=== PATIENT | male | born 1940 | race Caucasian/White ===

== ENCOUNTER 2017-09-04 10:50 | Emergency (ER) | payer MEDICARE, MEDICAID ==
--- NOTE | 2017-09-04 11:19 | CT ---
CT HEAD WITHOUT IV CONTRAST 09/04/2017 HISTORY: Right-sided tingling involving the upper extremity. Tingling symptoms started one hour ago. COMPARISON: 11/23/2015. FINDINGS: There is no evidence of a hemorrhage, acute infarction, mass effect, midline shift. Again noted is mild cerebral and cerebellar volume loss. The ventricular system is normal in size, shape, and posi tion for the degree of sulcal atrophy. Again noted is a small left globe with circumferential calci fications. IMPRESSION: 1. No acute intracranial abnormality is demonstrated 2. Stable cerebral and cerebellar volume loss. 3. Small left globe with peripheral calcification, a stable finding, post-traumatic in origin versus possibly congenital in origin. 4. The above findings discussed with Dr. De Leon in the Emergency Department on 09/04/2017 at 1103 ho urs. POS: [facility]
[2017-09-04 11:24] LABS: #Basophils 0.1 thou/uL (0.0-0.2); #Eosinphils 0.4 thou/uL (0.0-0.7); #Lymphocytes 1.8 thou/uL (1.20-3.40); #Monocytes 0.7 thou/uL (0.11-0.59); #Neutrophils 2.2 thou/uL (1.40-6.50); %Basophils 2.3 % (0.0-1.0); %Eosinophils 7.4 % (0.0-10.0); %Lymphocytes 34.5 % (21.0-51.0); %Monocytes 13.1 % (0.0-10.0); Hematocrit 46.4 % (42.0-52.0); Mean Platelet Volume 6.8 fL (7.4-10.4); White Blood Cell (WBC) Count 5.1 thou/uL (4.8-10.8)
[2017-09-04 11:33] LABS: PTT 34.4 SEC (22.9-36.1); Prothrombin Time 13.1 SEC (12.0-14.7)
[2017-09-04 11:45] LABS: Troponin I Less than 0.010 ng/mL (< 0.028)
--- NOTE | 2017-09-04 11:55 | RAD ---
PORTABLE AP CHEST X-RAY 09/04/2017 HISTORY: Stroke alert. The patient is having right-sided tingling to the upper extremity. Symptoms started one hour prior to arrival. COMPARISON: 02/08/2016 FINDINGS: Interstitial opacities at the right lung base is improved with only minimal interstitial densities p ersisting likely related to mild scarring. There is evidence of emphysematous changes predominantly within the upper lobes with increased interstitial density at each lung base probably related to ch ronic bronchovascular markings. Cardiac silhouette and pulmonary vasculature are within normal limi ts. Vascular calcifications seen at the thoracic aorta. Surgical clips again overlie the epigastri c region. IMPRESSION: 1. Mild chronic lung changes with evidence of chronic obstructive pulmonary disease. 2. Improvement in interstitial opacities, right lung base, probably related to resolution of infecti ous process. POS: [facility]
[2017-09-04 11:56] LABS: ALT (SGPT) 29 U/L (8-55); AST (SGOT) 33 U/L (5-34); Alkaline Phosphatase 74 U/L (40-150); Anion Gap 13 mmol/L (10-20); BUN (Urea Nitrogen) 15 mg/dL (8.4-25.7); Bilirubin, Total 0.9 mg/dL (0.2-1.2); CK (CPK) 108 U/L (30-200); Calc. Creatinine Clearance 0 mL/min (70-130); Calcium 9.8 mg/dL (7.8-10.44); Carbon Dioxide 25 mmol/L (23-31); Chloride 103 mmol/L (98-107); Estimated GFR-MDRD 51; Globulin 4.2 g/dL (2.4-3.5); Protein, Total 8.5 g/dL (5.8-8.1)
--- NOTE | 2017-09-06 13:47 | EKG ---
Test Reason : STROKE Blood Pressure : / mmHG Vent. Rate : 074 BPM Atrial Rate : 074 BPM P-R Int : 160 ms QRS Dur : 068 ms QT Int : 372 ms P-R-T Axes : 078 -25 036 degrees QTc Int : 412 ms Normal sinus rhythm Septal infarct , age undetermined Abnormal ECG Confirmed by MING BOURNE, GRACIE ([id number]), online content editor JARRETT FRIAS ([id number]) on 09/06/2017 1:46:49 PM Referred By: Confirmed By:GRACIE LAI MD
== END 2017-09-04 14:00 | disposition left against medical advice (07) ==
LOC: ERS 10:50
DX: G45.9 Transient cerebral ischemic attack, unspecified (principal); I10 Essential (primary) hypertension; F17.210 Nicotine dependence, cigarettes, uncomplicated; Z79.899 Other long term (current) drug therapy
CPT/HCPCS: 36416; 70450; 71010; 80053; 82553; 84484; 85025; 85610; 85730; 93005; 99406

== ENCOUNTER 2017-10-17 09:09 | Emergency (ER) | payer MEDICARE ==
[2017-10-17] MEDS ORDERED: Nitroglycerin 2% Ointment 1 INCH/1 GM Packet ONE (09:37)
[2017-10-17 09:38] LABS: #Basophils 0.1 thou/uL (0.0-0.2); #Eosinphils 1.1 thou/uL (0.0-0.7); #Lymphocytes 1.8 thou/uL (1.20-3.40); #Monocytes 0.8 thou/uL (0.11-0.59); %Basophils 0.8 % (0.0-1.0); %Eosinophils 16.2 % (0.0-10.0); %Lymphocytes 25.9 % (21.0-51.0); Hematocrit 41.3 % (42.0-52.0); Mean Platelet Volume 6.6 fL (7.4-10.4); Red Blood Cell (RBC) Count 4.14 mill/uL (4.70-6.10); White Blood Cell (WBC) Count 6.7 thou/uL (4.8-10.8)
--- NOTE | 2017-10-17 09:49 | RAD ---
AP VIEW OF THE CHEST: INDICATION: Chest pain. COMPARISON: Prior exam dated 09/04/17. FINDINGS: Chronic lung changes are stable. Mild cardiomegaly is similar. Scattered vascular calcifications ar e stable. No acute osseous abnormality is evident. IMPRESSION: No acute abnormality. POS: [facility]
[2017-10-17 09:57] LABS: ALT (SGPT) 22 U/L (8-55); AST (SGOT) 27 U/L (5-34); Alkaline Phosphatase 72 U/L (40-150); Anion Gap 12 mmol/L (10-20); BUN (Urea Nitrogen) 18 mg/dL (8.4-25.7); Bilirubin, Total 0.7 mg/dL (0.2-1.2); CK (CPK) 97 U/L (30-200); Calc. Creatinine Clearance 0 mL/min (70-130); Calcium 9.6 mg/dL (7.8-10.44); Carbon Dioxide 26 mmol/L (23-31); Chloride 98 mmol/L (98-107); Estimated GFR-MDRD 53; Globulin 4.2 g/dL (2.4-3.5); Protein, Total 8.5 g/dL (5.8-8.1)
[2017-10-17 09:59] LABS: Troponin I Less than 0.010 ng/mL (< 0.028)
== END 2017-10-17 11:07 | disposition left against medical advice (07) ==
LOC: ERS 09:09
DX: R07.9 Chest pain, unspecified (principal); I10 Essential (primary) hypertension; F17.210 Nicotine dependence, cigarettes, uncomplicated; Z79.82 Long term (current) use of aspirin; Z79.899 Other long term (current) drug therapy
CPT/HCPCS: 71010; 80053; 82550; 82553; 83690; 84484; 85025; 93005; 94760

== ENCOUNTER 2018-05-07 19:06 | Emergency (ER) | payer MEDICARE, MEDICAID | END 2018-05-07 21:20 | disposition home or self-care (01) | LOC: ERS 19:06 | DX: I10 Essential (primary) hypertension (principal); F17.210 Nicotine dependence, cigarettes, uncomplicated; Z79.82 Long term (current) use of aspirin; Z79.899 Other long term (current) drug therapy | CPT/HCPCS: 99283 ==

== ENCOUNTER 2018-10-01 16:31 | Emergency (ER) | payer MEDICARE, MEDICAID ==
[2018-10-01 18:36] LABS: #Basophils 0.1 thou/uL (0.0-0.2); #Eosinphils 0.5 thou/uL (0.0-0.7); #Lymphocytes 1.4 thou/uL (1.20-3.40); #Monocytes 0.5 thou/uL (0.11-0.59); #Neutrophils 2.2 thou/uL (1.40-6.50); %Basophils 1.4 % (0.0-1.0); %Eosinophils 9.7 % (0.0-10.0); %Lymphocytes 30.8 % (21.0-51.0); %Monocytes 10.4 % (0.0-10.0); %Neutrophils 47.7 % (42.0-75.0); Hemoglobin 11.5 g/dL (14.0-18.0); Mean Corpuscular HGB CONC 33.5 g/dL (32.0-36.0); Mean Corpuscular Hemoglobin 30.1 pg (27.0-31.0); Mean Corpuscular Volume 89.8 fL (78.0-98.0); Mean Platelet Volume 6.4 fL (7.4-10.4); Platelet Count 376 thou/uL (130-400); RBC Distribution Width 11.4 % (11.5-14.5); Red Blood Cell (RBC) Count 3.82 mill/uL (4.70-6.10); White Blood Cell (WBC) Count 4.7 thou/uL (4.8-10.8)
[2018-10-01 19:03] LABS: CKMB 1.3 ng/mL (0-6.6); Troponin I Less than 0.010 ng/mL (< 0.028)
[2018-10-01 19:08] LABS: ALT (SGPT) 17 U/L (8-55); AST (SGOT) 20 U/L (5-34); Albumin 3.8 g/dL (3.4-4.8); Alkaline Phosphatase 76 U/L (40-150); Anion Gap 8 mmol/L (10-20); BUN (Urea Nitrogen) 20 mg/dL (8.4-25.7); Bilirubin, Total 0.5 mg/dL (0.2-1.2); Calc. Creatinine Clearance 0 mL/min (70-130); Calcium 9.3 mg/dL (7.8-10.44); Carbon Dioxide 29 mmol/L (23-31); Chloride 102 mmol/L (98-107); Estimated GFR-MDRD 50; Globulin 4.1 g/dL (2.4-3.5); Glucose 88 mg/dL (83-110); Potassium 4.4 mmol/L (3.5-5.1); Protein, Total 7.9 g/dL (5.8-8.1); Sodium 135 mmol/L (136-145)
--- NOTE | 2018-10-01 19:50 | CT ---
CT OF THE HEAD WITHOUT CONTRAST: 10/01/18 COMPARISON: 09/04/17 HISTORY: Right hand numbness. TECHNIQUE: Axial CT imaging at 5 mm intervals from vertex through skull base without contrast. FINDINGS: The left globe is small and demonstrates coarse calcification, stable. There is diffuse cerebral volu me loss with associated prominence of the CSF containing spaces, stable. The imaged paranasal sinuses/mastoid air cells are well aerated. There is no displaced calvarial frac ture. There is no intracranial hemorrhage, midline shift, mass effect or ventricular enlargement. IMPRESSION: Stable head CT - no acute findings. POS: [facility]
== END 2018-10-01 19:37 | disposition home or self-care (01) ==
LOC: ERS 16:31
DX: R20.2 Paresthesia of skin (principal); I10 Essential (primary) hypertension; F17.210 Nicotine dependence, cigarettes, uncomplicated; Z79.82 Long term (current) use of aspirin
CPT/HCPCS: 36415; 70450; 80053; 82553; 84484; 85025

== ENCOUNTER 2018-12-02 07:42 | Observation (INO) | payer MEDICARE, MEDICAID ==
[2018-12-02 08:19] LABS: #Basophils 0.1 thou/uL (0.0-0.2); #Eosinphils 0.6 thou/uL (0.0-0.7); #Monocytes 0.6 thou/uL (0.11-0.59); #Neutrophils 2.6 thou/uL (1.40-6.50); %Basophils 1.3 % (0.0-1.0); %Eosinophils 11.7 % (0.0-10.0); %Lymphocytes 20.4 % (21.0-51.0); %Monocytes 11.7 % (0.0-10.0); Hemoglobin 11.7 g/dL (14.0-18.0); Mean Corpuscular HGB CONC 31.8 g/dL (32.0-36.0); Mean Corpuscular Hemoglobin 28.2 pg (27.0-31.0); Mean Corpuscular Volume 88.8 fL (78.0-98.0); Mean Platelet Volume 6.5 fL (7.4-10.4); Platelet Count 377 thou/uL (130-400); RBC Distribution Width 12.3 % (11.5-14.5); Red Blood Cell (RBC) Count 4.14 mill/uL (4.70-6.10); White Blood Cell (WBC) Count 4.8 thou/uL (4.8-10.8)
[2018-12-02 08:43] LABS: ALT (SGPT) 32 U/L (8-55); AST (SGOT) 43 U/L (5-34); Albumin 4.4 g/dL (3.4-4.8); Alkaline Phosphatase 76 U/L (40-150); Anion Gap 12 mmol/L (10-20); BUN (Urea Nitrogen) 17 mg/dL (8.4-25.7); Bilirubin, Total 0.8 mg/dL (0.2-1.2); Calc. Creatinine Clearance 0 mL/min (70-130); Calcium 9.5 mg/dL (7.8-10.44); Carbon Dioxide 26 mmol/L (23-31); Chloride 101 mmol/L (98-107); Estimated GFR-MDRD 48; Globulin 4.1 g/dL (2.4-3.5); Glucose 106 mg/dL (83-110); Potassium 4.1 mmol/L (3.5-5.1); Protein, Total 8.5 g/dL (5.8-8.1); Sodium 135 mmol/L (136-145)
[2018-12-02] MEDS ORDERED: Nitroglycerin 0.4 MG TAB 1 EACH ONE (08:59)
--- NOTE | 2018-12-02 09:02 | RAD ---
PORTABLE CHEST 1 VIEW: DATE: 12/02/2018. TIME: 7:40 a.m. HISTORY: Chest pain. FINDINGS: Comparison is made with the exam of 10/17/2017. The heart size is normal. The lungs are expanded without focal areas of consolidation, pneumothorace s, or pleural effusions. IMPRESSION: No radiographic evidence of acute cardiopulmonary process. POS: [facility]
[2018-12-02] MEDS ORDERED: Aspirin Chewable 81 MG TAB ONE (09:50)
[2018-12-02] MEDS ORDERED: Ondansetron PF 4 MG/2 ML Vial IVP PRN (12:09)
[2018-12-02] MEDS ORDERED: Ondansetron ODT 4 MG TAB SL PRN (12:09)
[2018-12-02] MEDS ORDERED: Acetaminophen 325 MG TAB PO PRN (12:09)
[2018-12-02 12:20] LABS: Cardiac Risk 3.3 (Less than 4.5)
[2018-12-02 12:22] LABS: Troponin I Less than 0.010 ng/mL (< 0.028)
[2018-12-02 12:35] VITALS: BMI 19.2
[2018-12-02 12:40] VITALS: BP 135/62
== END 2018-12-02 14:05 | disposition left against medical advice (07) ==
LOC: ERS 07:42 → 2SW 09:40
PROVIDERS: ADMIT Internal Medicine; ATTEND Internal Medicine
DX: R07.89 Other chest pain (principal); L98.9 Disorder of the skin and subcutaneous tissue, unspecified; F17.210 Nicotine dependence, cigarettes, uncomplicated; I10 Essential (primary) hypertension; Z86.711 Personal history of pulmonary embolism; Z87.11 Personal history of peptic ulcer disease; Z79.82 Long term (current) use of aspirin; Z88.0 Allergy status to penicillin; Z98.890 Other specified postprocedural states
CPT/HCPCS: 71045; 80061; 84484 ×2; 93005; 99285; G0378; 36415; 80053; 84443; 85025

== ENCOUNTER 2019-06-07 08:17 | Outpatient (CLI) | payer MEDICARE, MEDICAID ==
--- NOTE | 2019-06-07 10:30 | ULT ---
ULTRASOUND ABDOMINAL AORTA: HISTORY: Screening for abdominal aortic aneurysm. FINDINGS: There is plaque seen within the abdominal aorta which measures 2.2 cm in largest AP dimension. IMPRESSION: No evidence of abdominal aortic aneurysm. POS: [facility]
== END 2019-06-07 08:18 | disposition home or self-care (01) ==
LOC: BICULT 08:17
PROVIDERS: ATTEND Family Medicine
DX: Z13.6 Encounter for screening for cardiovascular disorders (principal)
CPT/HCPCS: 76775

== ENCOUNTER 2019-09-15 08:12 | Inpatient (IN) | payer MEDICARE, MEDICAID ==
--- NOTE | 2019-09-15 08:45 | RAD ---
XR Chest 1 View Portable HISTORY: Dizziness with nausea. Productive cough COMPARISON: 12/02/2018 FINDINGS: The heart size is normal. The lungs are well expanded without focal areas of consolidation, pneumothorax or pleural effusions. IMPRESSION: No radiographic evidence of acute cardiopulmonary process.
[2019-09-15 08:46] LABS: #Lymphocytes 0.9 thou/uL (1.20-3.40); #Monocytes 0.8 thou/uL (0.11-0.59); #Neutrophils 6.9 thou/uL (1.40-6.50); %Basophils 0.1 % (0.0-1.0); %Eosinophils 0.4 % (0.0-10.0); %Lymphocytes 9.9 % (21.0-51.0); %Monocytes 9.4 % (0.0-10.0); %Neutrophils 80.2 % (42.0-75.0); Hemoglobin 8.6 g/dL (14.0-18.0); Mean Corpuscular HGB CONC 32.1 g/dL (32.0-36.0); Mean Corpuscular Hemoglobin 26.6 pg (27.0-31.0); Mean Platelet Volume 6.1 fL (7.4-10.4); Platelet Count 403 thou/uL (130-400); RBC Distribution Width 13.6 % (11.5-14.5); Red Blood Cell (RBC) Count 3.23 mill/uL (4.70-6.10); White Blood Cell (WBC) Count 8.6 thou/uL (4.8-10.8)
[2019-09-15 09:08] LABS: ALT (SGPT) 18 U/L (8-55); AST (SGOT) 22 U/L (5-34); Albumin 3.6 g/dL (3.4-4.8); Alkaline Phosphatase 67 U/L (40-110); Anion Gap 10 mmol/L (10-20); BUN (Urea Nitrogen) 21 mg/dL (8.4-25.7); Bilirubin, Total 0.7 mg/dL (0.2-1.2); Calc. Creatinine Clearance 0 mL/min (70-130); Calcium 8.8 mg/dL (7.8-10.44); Carbon Dioxide 25 mmol/L (23-31); Chloride 101 mmol/L (98-107); Estimated GFR-MDRD 51; Globulin 3.7 g/dL (2.4-3.5); Glucose 137 mg/dL (83-110); Lipase 15 U/L (8-78); Potassium 4.6 mmol/L (3.5-5.1); Protein, Total 7.3 g/dL (5.8-8.1); Sodium 131 mmol/L (136-145)
[2019-09-15] MEDS ORDERED: Ondansetron PF 4 MG/2 ML Vial ONE (09:27)
[2019-09-15] MEDS ORDERED: methylPREDNISolone Sod Succ/PF 125 MG/2 ML VIAL ONE (09:27)
[2019-09-15] MEDS ORDERED: Ondansetron PF 4 MG/2 ML Vial IVP PRN ×2 (10:00→22:42)
[2019-09-15] MEDS ORDERED: Ondansetron ODT 4 MG TAB SL PRN ×2 (10:00→22:42)
[2019-09-15] MEDS ORDERED: Albuterol Sulfate 2.5 mg/3 ml Neb NEB PRN (10:00)
[2019-09-15 11:02] LABS: Bilirubin Negative (Negative); Blood, Urine Negative (Negative); Clarity Clear (Clear); Glucose, Urine (Dipstick) Normal (Negative); Leukocyte Negative Leu/uL (Negative); Nitrite Negative (Negative); Protein, Urine (Dipstick) 10 mg/dL (Neg-Trace); Urobilinogen Normal mg/dL (Less than 2)
[2019-09-15] MEDS: Lactated Ringer's 1,000 ML IV SCH ×2 (12:04→21:00)
[2019-09-15 15:23] VITALS: BMI 18.8
[2019-09-15] MEDS ORDERED: Albuterol Sulfate 1.25 MG/3 ML NEB NEB PRN (16:39)
[2019-09-15 17:28] LABS: Hemoglobin 8.1 g/dL (14.0-18.0)
--- NOTE | 2019-09-15 17:57 | HP ---
PRIMARY CARE PHYSICIAN: Dr. Cook. CHIEF COMPLAINT: Dizziness, nausea x1 day, cough times several days. HISTORY OF PRESENT ILLNESS: This is a 78-year-old male, with remote past medical history of peptic ulcer disease requiring surgical repair, nicotine dependence, anemia, who awoke this morning at 6:30 a.m. with staggering gait and dizziness associated with changes in position, improved with lying at rest, in the abscess of chest pain or syncope, prompting for ED evaluation. The patient denies any similar complaints. He notes prodromal complaints of cough and wheezing throughout the week and decreased oral appetite. He notes chronic complaints of constipation with last bowel movement 3 days ago. He denies any fall or trauma. In the emergency room, the patient was noted to have audible wheezing and administered 125 mg of IV Solu-Medrol and empiric IV Levaquin 750 mg in the absence of any chest x-ray abnormalities with improvement in respiratory symptoms. Chemistries revealed sodium 131 and chronically elevated creatinine of 1.34. Orthostatic vital signs were positive. CBC revealed a downtrending hemoglobin of 8.6, notably 11.7 in 2018. The patient was administered a total of 1 L fluid bolus with improvement in symptoms, admitted for further observation. At bedside, the patient reports feeling improved. He still has some complaints of dizziness with changes in position, but has been ambulatory from bed to bathroom using IV pole. He denies any complaints of near syncope or syncope, but notes he was nauseated earlier today. He can reiterate that he does not have any anginal complaints. He denies any melenic stools. He notes chronic complaints of indigestion and drinks Dr pepper to minimize symptoms. Denies any hematemesis, hematochezia, or any GI bleed. He denies any prior colonoscopy. His breathing has markedly improved since ER interventions. Nursing staff notes no acute events. PAST MEDICAL HISTORY: Nicotine dependence; chronic anemia; peptic ulcer disease , requiring prior surgical intervention. PAST SURGICAL HISTORY: Surgery for peptic ulcer disease. SOCIAL HISTORY: The patient is having some nicotine dependence, smoking 10 cigarettes per day. He denies alcohol or illicit drug use. Denied any use of any assistive device. , lives with spouse. ALLERGIES: documented for PENICILLIN G. REVIEW OF SYSTEMS: Pertinent positives per HPI. Remainder of review of systems negative. MEDICATIONS: Home medications will be reviewed as per admission medication reconciliation. The patient reports taking aspirin 81 mg on a daily basis. He denied use of any NSAIDs. FAMILY HISTORY: The patient's brother from cancer. He denies any other chronic medical comorbidities in family members. PHYSICAL EXAMINATION: VITAL SIGNS: Temperature 99.3, pulse 83, blood pressure 103/59, oxygen saturation 97% on room air. GENERAL APPEARANCE: This is an elderly thin male, who is awake, alert, oriented , coherent, lucid, not in any obvious distress. EYES: Pupils are equally round and reactive. Extraocular muscles are intact. No scleral icterus. No appreciable conjunctival pallor. HENT: Normocephalic and atraumatic. There is frontotemporal wasting noted. Mucous membranes are moist. NECK: Supple. CARDIOVASCULAR SYSTEM: S1 and S2. Regular rate and rhythm. No harsh murmurs. No reproducible chest wall tenderness to palpation. LUNGS: Nonlabored respiration on bilateral posterior auscultation. Symmetrical chest expansion. No appreciable wheezing or rales. ABDOMEN: Soft, nontender, and nondistended. No peritoneal signs. EXTREMITIES: Muscular atrophy noted. No deformities or cyanosis. SKIN: Warm to touch without obvious rashes, pallor, or abrasion. LABORATORY DATA: WBC 8.6, hemoglobin and hematocrit 8.6/26.8, MCV 83, platelets 403, RDW 13.6%. Sodium 131, potassium 4.6, chloride 101, bicarb 25, glucose 137 , BUN and creatinine 21/1.34, GFR 51. Troponin-I negative x1. Albumin 3.6. Urinalysis, unremarkable. IMAGING: Chest x-ray, one-view on 09/15/2019, reveals no evidence of acute cardiopulmonary processes. ASSESSMENT: 1. Dizziness, secondary to orthostatic hypotension. The patient will be admitted as observation status. Suspect the patient is intravascularly depleted and feels improved already with 1 L IV fluid bolus. We will continue maintenance fluids with Lactated Ringer's at 125 mL/hour and obtain serial orthostatic vital signs. We will repeat hemoglobin and hematocrit now and tomorrow morning, noting progression of anemia, but the patient denies any complaints of melenic stools or acute GI bleeding. We will hold antiplatelets and anticoagulants. We will maintain fall precautions. 2. Acute on chronic anemia of unspecified etiology. The patient has notable history of peptic ulcer disease, requiring prior surgical intervention and does take aspirin 81 mg daily with ongoing nicotine dependence. We will start empiric oral PPI. We will obtain occult blood stool test. We will start laxative, noting chronic complaints of constipation and monitor for any melena. The patient denies any prior colonoscopy. No acute indication for inpatient GI evaluation at this time. MCV normocytic. 3. Acute bronchitis. The patient notes improvement with IV Solu-Medrol 125 mg and IV Levaquin administered in ER. We will continue nebulized bronchodilators while awake. The patient will require cessation counseling from nicotine. 4. Nicotine dependence. The patient will require cessation counseling. 5. Hyponatremia, would be secondary to intravascular depletion. The patient has received 1 L IV bolus in the ER and we will continue maintenance fluids. 6. Chronic kidney disease, stage 3, at baseline. 7. History of peptic ulcer disease requiring surgical intervention.start oral PPI noting indigestion symptoms. Gastrointestinal prophylaxis, oral Protonix. Deep venous thrombosis with SCDs and ambulation. We will withhold anticoagulation, noting anemia. DISPOSITION: The patient will be admitted as observation status. Anticipate less than 24-hour hospitalization. Plan of care discussed with the patient and the patient's nurse. Job ID: [id number] MTDD
[2019-09-16] MEDS: Lactated Ringer's 1,000 ML IV SCH ×3 (05:20→13:19)
[2019-09-16 06:35] LABS: Hemoglobin 7.5 g/dL (14.0-18.0)
[2019-09-16] MEDS: Polyethylene Glycol 3350 17 GM Packet PO SCH (08:30)
[2019-09-16] MEDS ORDERED: Sodium Chloride 0.9% (PF) 10 ML VIAL FS PRN (08:49)
[2019-09-16 14:26] LABS: Platelet Count 412 thou/uL (130-400)
[2019-09-16 17:13] LABS: Iron 17 ug/dL (65-175); Iron Binding Capacity, Total 310 mcg/dL (261-462)
[2019-09-16] MEDS ORDERED: Iron, Sodium Ferric Gluconate 125 MG in Sodium Chloride 0.9% 100 ML IVPB SCH ×2 (18:30)
[2019-09-16] MEDS: Acetaminophen 325 MG TAB PO PRN (20:14)
[2019-09-16 21:08] LABS: #Lymphocytes 0.8 thou/uL (1.20-3.40); #Monocytes 0.6 thou/uL (0.11-0.59); #Neutrophils 6.8 thou/uL (1.40-6.50); %Lymphocytes 9.7 % (21.0-51.0); %Monocytes 6.7 % (0.0-10.0); %Neutrophils 83.5 % (42.0-75.0); Hemoglobin 8.5 g/dL (14.0-18.0); Mean Corpuscular Hemoglobin 26.3 pg (27.0-31.0); Mean Corpuscular Volume 82.1 fL (78.0-98.0); Mean Platelet Volume 6.2 fL (7.4-10.4); Platelet Count 384 thou/uL (130-400); RBC Distribution Width 13.9 % (11.5-14.5); Red Blood Cell (RBC) Count 3.22 mill/uL (4.70-6.10); White Blood Cell (WBC) Count 8.2 thou/uL (4.8-10.8)
[2019-09-16] MEDS: Pantoprazole 40 MG VIAL IVP SCH (21:26)
[2019-09-16 21:28] LABS: Lactic Acid 1.5 mmol/L (0.5-2.2)
[2019-09-16 21:33] LABS: ALT (SGPT) 17 U/L (8-55); AST (SGOT) 43 U/L (5-34); Albumin 3.1 g/dL (3.4-4.8); Alkaline Phosphatase 53 U/L (40-110); Anion Gap 9 mmol/L (10-20); BUN (Urea Nitrogen) 21 mg/dL (8.4-25.7); Bilirubin, Total 0.5 mg/dL (0.2-1.2); Calc. Creatinine Clearance 39 mL/min (70-130); Calcium 8.3 mg/dL (7.8-10.44); Carbon Dioxide 26 mmol/L (23-31); Chloride 103 mmol/L (98-107); Estimated GFR-MDRD 60; Globulin 3.2 g/dL (2.4-3.5); Glucose 124 mg/dL (83-110); Protein, Total 6.3 g/dL (5.8-8.1); Sodium 134 mmol/L (136-145)
--- NOTE | 2019-09-16 22:16 | CON ---
DATE OF CONSULTATION: 09/16/2019 REASON FOR CONSULTATION: Anemia, history of peptic ulcer disease. CONSULTING PROVIDER: Dr. Rajan Gilbert. HISTORY OF PRESENT ILLNESS: The patient is a 78-year-old male with past medical history of chronic anemia, tobacco abuse, neuropathy, and a remote history of peptic ulcer disease requiring surgical intervention, presenting with complaints with dizziness. He states that he was in his usual state of health until yesterday morning when he awoke with increased dizziness accompanied by difficulty with ambulation. These symptoms then prompted him to seek healthcare assistance at the [facility] ER for further evaluation. He also notes that he has been having increased cough that has been present for the last 1 to 2 weeks as well that has been associated with wheezing per patient. However with evaluation in the [facility] ER, he was noted to have a significant anemia, which was decreased when compared to prior labs obtained in 2018. He was ultimately admitted to the hospital for further evaluation of this anemia in addition to further workup related to his dizziness and coughing. Upon questioning the patient, he states that he has approximately one solid/semi-solid bowel movement every 3 days that he primarily uses [id number] stool softeners in order to facilitate defecation. He does not have any difficulty with defecation when it does occur. Otherwise, he denies any nausea, vomiting, fevers, chills, hematemesis, melena, hematochezia, dysphagia, odynophagia, or weight loss. REVIEW OF SYSTEMS: A 10-category review of systems was obtained with all responses negative except for the pertinent positives as listed in HPI. PAST MEDICAL HISTORY: As per HPI. PAST SURGICAL HISTORY: Gastric surgery for peptic ulcer disease. FAMILY HISTORY: Denies any GI malignancies. SOCIAL HISTORY: Denies any alcohol or illicit drug use; however he does smoke approximately one half pack per day. OUTPATIENT MEDICATIONS: Reviewed. ALLERGIES: PENICILLIN G. PHYSICAL EXAMINATION: VITAL SIGNS: Temperature 101.6, pulse 99, blood pressure 124/55, respiratory rate 18, saturating 92% on room air. GENERAL: The patient was lying in bed, in no acute distress. Alert and oriented x4. HEENT: Normocephalic, atraumatic. NECK: Supple. No JVD or scleral icterus noted. CARDIOVASCULAR: Irregular rate and rhythm with no discernible murmurs, gallops, or rubs. RESPIRATORY: Clear to auscultation bilaterally, but with some diminished breath sounds in the upper lung parekh. ABDOMEN: Normoactive bowel sounds. Soft, nontender, nondistended. EXTREMITIES: No cyanosis, clubbing, or edema. LABORATORY DATA: CBC with a white blood cell count of 8.6, hemoglobin 8, hematocrit 25, platelets 403. Chemistry with a sodium of 131, potassium 4.6, chloride 101, CO2 of 25, BUN 21, creatinine 1.34, glucose 137, AST 22, ALT 18, alkaline phosphatase 67, total bilirubin 0.7. BNP 123. Iron 17, ferritin 27, . IMAGING DATA: Chest x-ray obtained on September 15, 2019, showed lungs being well expanded without focal areas of consolidation, pneumothorax or pleural effusions. ASSESSMENT AND PLAN: The patient is a 78-year-old male with past medical history of neuropathy, tobacco abuse, history of peptic ulcer disease, and chronic anemia presenting with worsening of his any anemia when compared to 2018 with iron indices more consistent with anemia of chronic disease. Anemia. The patient was initially seen in the hospital with complaints of increased dizziness and increased coughing that has been present for the last 2 days. On admission to the ER, he was noted to have a decrease in his baseline H and H when compared to labs drawn in 2018. However, he does have labs drawn in May of this year that showed a slightly decreased H and H, this is more of an interim lab denoting worsening of his anemia. Further characterization of his anemia yielded a low iron, but normal ferritin and low normal TIBC, which seems to be more consistent with anemia of chronic disease rather than an anemia of iron deficiency consistent with GI blood loss. Given his history of peptic ulcer disease in the past, this is a concern for possible recurrence, but again would generate more of an iron deficiency anemia secondary to increased bleeding and inflammation associated with this condition. The patient currently denies any overt GI bleeding in the form of hematemesis, melena, or hematochezia further making the diagnosis of a GI bleed less likely. RECOMMENDATIONS: We will continue to trend his H and H and transfuse as necessary to maintain an H and H of 7/21. Continue to monitor clinically for signs of active GI bleeding. We would continue PPI daily. In light of his history of peptic ulcer disease, but most likely not contributing to GI bleeding at this time. Agree with IV fluid resuscitation for possible metastatic hypertension related to his increased dizziness. Given lack of evidence of overt GI bleeding and anemia labs consistent with anemia of chronic disease, we will sign off at this time. Please call with any additional questions or concerns. Job ID: [id number]
[2019-09-17] MEDS: Lactated Ringer's 1,000 ML IV SCH ×3 (04:33→17:38)
[2019-09-17 06:00] LABS: Hemoglobin 7.8 g/dL (14.0-18.0); Platelet Count 416 thou/uL (130-400)
--- NOTE | 2019-09-17 07:37 | PDOC.HOSPP ---
- Subjective Encounter Date: 09/16/19 Encounter Time: 14:00 Subjective: patient seen and examined Friday09/16/19 feels okay but still a little dizzy with position changes. offers no acute complaints. still no BM. noted drop in hemoglobin. - Objective Vital Signs & Weight: Vital Signs (12 hours) Temp Pulse Resp BP BP Pulse Ox 09/17/19 04:00 99.3 F 74 18 106/59 L 99 09/17/19 00:13 99.6 F 73 14 100/53 L 98 09/17/19 00:00 99.6 F 77 18 99/52 L 90 L 09/16/19 20:12 101.6 F H 09/16/19 20:00 97.6 F 99 18 124/55 L 92 L 09/16/19 19:58 92 L Weight Admit Weight 119 lb 15.962 oz Weight 119 lb 15.962 oz I&O: 09/16/19 09/17/19 09/18/19 06:59 06:59 06:59 Intake Total 3205 Output Total 1200 Balance 2004 Result Diagrams: 09/17/19 05:33 09/16/19 20:48 Hospitalist ROS - Review of Systems Other: pertinent positives per SUBJECTIVE; remainder ROS otherwise negative. - Medication Medications: Active Medications Generic Name Dose Route Start Last Admin Trade Name Freq PRN Reason Stop Dose Admin Acetaminophen 650 mg 09/15/19 16:39 09/16/19 20:14 Tylenol PO 650 mg Q4H PRN Administration Headache/Fever/Mild Pain (1-3) Lactated Ringer's 1,000 mls @ 75 mls/hr 09/16/19 13:42 09/17/19 04:33 Lactated Ringer's IV 1,000 mls .[id number] TARA Administration Pantoprazole Sodium 40 mg 09/16/19 21:00 09/16/19 21:26 Protonix IVP 40 mg Q12HR TARA Administration Polyethylene Glycol 17 gm 09/16/19 09:00 09/16/19 08:30 Miralax PO 17 gm DAILY TARA Administration - Exam General Appearance: awake alert Eye: PERRL, anicteric sclera Eye - other findings: EOMI ENT: normocephalic atraumatic ENT - other findings: no facial asymmetry Neck: supple Heart: RRR, no murmur Respiratory: CTAB, no wheezes, no rales, no ronchi Gastrointestinal: soft, non-tender, non-distended, no guarding Gastrointestinal - other findings: midline abdominal scar noted Extremities: no cyanosis, no edema Skin: normal turgor, no lesions Musculoskeletal: normal tone, normal strength Musculoskeletal - other findings: musculary atrophy noted Psychiatric: normal affect, normal behavior, A&O x 3 Hosp A/P - Plan acute on chronic anemia. H&H continues to worsen. noting history of PUD requiring surgical intervention and indigestion complaints, will consult GI for endoscopic evaluation. monitor H&H, check iron indices and results noted and will start IV ferrlecit, continue IVF, type and screen, NPO until GI evaluation. check FOBT orthostatic hypotension, resolved hyponatremia, resolved nicotine dependence ,cessation counseling given acute bronchitis, resolved GI Px: IV PPI BID DVT px: SCD and ambulation dispo: change to inpatient status noting worsening anemia of unspecified etiology check AM labs SEEN AND EXAMINED Friday09/16/19
[2019-09-17] MEDS: Polyethylene Glycol 3350 17 GM Packet PO SCH (08:31)
[2019-09-17] MEDS: Pantoprazole 40 MG VIAL IVP SCH ×2 (08:31→20:18)
--- NOTE | 2019-09-17 15:25 | PDOC.HOSPP ---
- Subjective Encounter Date: 09/17/19 Encounter Time: 15:23 Subjective: Mr. Pepper was seen today in follow-up of generalized weakness and anemia. He says he notes a cough productive of green sputum, and he says he continues to feel dizzy when he stands. He also feels he needs additional help at home. He says his can barely stand and has trouble cooking as a result. - Objective Vital Signs & Weight: Vital Signs (12 hours) Temp Pulse Resp BP BP Pulse Ox 09/17/19 08:20 92 L 09/17/19 07:34 99.1 F 81 18 108/56 L 92 L 09/17/19 04:00 99.3 F 74 18 106/59 L 99 Weight Admit Weight 119 lb 15.962 oz Weight 119 lb 15.962 oz I&O: 09/16/19 09/17/19 09/18/19 06:59 06:59 06:59 Intake Total 3205 Output Total 1200 Balance 2004 Result Diagrams: 09/17/19 05:33 09/16/19 20:48 Hospitalist ROS - Medication Medications: Active Medications Generic Name Dose Route Start Last Admin Trade Name Freq PRN Reason Stop Dose Admin Acetaminophen 650 mg 09/15/19 16:39 09/16/19 20:14 Tylenol PO 650 mg Q4H PRN Administration Headache/Fever/Mild Pain (1-3) Lactated Ringer's 1,000 mls @ 75 mls/hr 09/16/19 13:42 09/17/19 04:33 Lactated Ringer's IV 1,000 mls .[id number] TARA Administration Pantoprazole Sodium 40 mg 09/16/19 21:00 09/17/19 08:31 Protonix IVP 40 mg Q12HR TARA Administration Polyethylene Glycol 17 gm 09/16/19 09:00 09/17/19 08:31 Miralax PO 17 gm DAILY TARA Administration - Exam Eye: PERRL Heart: RRR, no murmur, no gallops, no rubs, normal peripheral pulses Respiratory: CTAB (with coarse breath sounds), no rales, no ronchi Gastrointestinal: soft, non-tender, non-distended, normal bowel sounds, no palpable masses, no hepatomegaly, no splenomegaly Extremities: no cyanosis, no clubbing, no edema Hosp A/P (1) Acute bronchitis Code(s): J20.9 - ACUTE BRONCHITIS, UNSPECIFIED Status: Acute (2) Tobacco abuse Code(s): Z72.0 - TOBACCO USE Status: Chronic (3) Anemia, chronic disease Code(s): D63.8 - ANEMIA IN OTHER CHRONIC DISEASES CLASSIFIED ELSEWHERE Status : Chronic (4) Generalized weakness Code(s): R53.1 - WEAKNESS Status: Acute - Plan * Bronchitis- I suspect he has undiagnosed COPD * Will add Doxycycline to his regimen * Continue Neb treatments * Anemia- is most consistent with anemia of chronic disease * Discussed his concerns with Case management-will give him the information for Provider services * Hopefully home tomorrow
[2019-09-17] MEDS: Saccharomyces boulardii 250 MG CAP PO SCH (17:37)
[2019-09-17] MEDS: Acetaminophen 325 MG TAB PO PRN (20:17)
[2019-09-17] MEDS: Doxycycline 100 MG CAP PO SCH (20:17)
[2019-09-18] MEDS: Lactated Ringer's 1,000 ML IV SCH ×2 (06:08→20:46)
[2019-09-18] MEDS: Pantoprazole 40 MG VIAL IVP SCH ×2 (08:40→21:16)
[2019-09-18] MEDS: Doxycycline 100 MG CAP PO SCH ×2 (08:40→21:15)
[2019-09-18] MEDS: Aspirin 81 mg Enteric Coated Tablet PO SCH (08:40)
[2019-09-18] MEDS: Polyethylene Glycol 3350 17 GM Packet PO SCH (08:40)
--- NOTE | 2019-09-18 16:15 | PDOC.HOSPP ---
- Subjective Encounter Date: 09/18/19 Encounter Time: 16:12 Subjective: Mr. Pepper was seen today in follow-up. He says he still feels dizzy, when he gets up to stand. He is not sure if he is ready to go home. - Objective Vital Signs & Weight: Vital Signs (12 hours) Temp Pulse Resp BP BP Pulse Ox 09/18/19 15:46 99.2 F 92 17 145/56 H 92 L 09/18/19 12:00 98.2 F 88 20 121/62 09/18/19 08:00 98.4 F 96 20 116/65 94 L Weight Admit Weight 119 lb 15.962 oz Weight 119 lb 15.962 oz I&O: 09/17/19 09/18/19 09/19/19 06:59 06:59 06:59 Intake Total 3650 900 Output Total 3300 Balance 350 900 Result Diagrams: 09/17/19 05:33 09/16/19 20:48 Hospitalist ROS - Medication Medications: Active Medications Generic Name Dose Route Start Last Admin Trade Name Freq PRN Reason Stop Dose Admin Acetaminophen 650 mg 09/15/19 16:39 09/17/19 20:17 Tylenol PO 650 mg Q4H PRN Administration Headache/Fever/Mild Pain (1-3) Aspirin 81 mg 09/18/19 09:00 09/18/19 08:40 Ecotrin PO 81 mg DAILY TARA Administration Doxycycline Hyclate 100 mg 09/17/19 21:00 09/18/19 08:40 Vibramycin PO 100 mg BID TARA Administration Lactated Ringer's 1,000 mls @ 75 mls/hr 09/16/19 13:42 09/18/19 06:08 Lactated Ringer's IV 1,000 mls .[id number] TARA Administration Pantoprazole Sodium 40 mg 09/16/19 21:00 09/18/19 08:40 Protonix IVP 40 mg Q12HR TARA Administration Polyethylene Glycol 17 gm 09/16/19 09:00 09/18/19 08:40 Miralax PO 17 gm DAILY TARA Administration Saccharomyces Boulardii 250 mg 09/17/19 18:00 09/17/19 17:37 Florastor PO 250 mg 1800 TARA Administration - Exam Eye: PERRL Heart: RRR, no gallops, no rubs, normal peripheral pulses, murmur present Respiratory: CTAB (with the exception of an occasional wheeze), no rales Gastrointestinal: soft, non-tender, non-distended, normal bowel sounds, no palpable masses, no hepatomegaly Extremities: no cyanosis, no clubbing, no edema Hosp A/P (1) Acute bronchitis Code(s): J20.9 - ACUTE BRONCHITIS, UNSPECIFIED Status: Acute (2) Tobacco abuse Code(s): Z72.0 - TOBACCO USE Status: Chronic (3) Anemia, chronic disease Code(s): D63.8 - ANEMIA IN OTHER CHRONIC DISEASES CLASSIFIED ELSEWHERE Status : Chronic (4) Generalized weakness Code(s): R53.1 - WEAKNESS Status: Acute - Plan * Bronchitis- I suspect he has undiagnosed COPD * Continue antibiotics, and duonebs * Continue Neb treatments * Anemia- is most consistent with anemia of chronic disease- he appears to still be symptomatic despite fluid administration- will transfuse, and check a post transfusion H&H * He says he would like to consider fdc placement due to his weakness.
[2019-09-18] MEDS: Acetaminophen 325 MG TAB PO PRN (17:55)
[2019-09-18] MEDS: Saccharomyces boulardii 250 MG CAP PO SCH (17:55)
[2019-09-19] MEDS: Lactated Ringer's 1,000 ML IV SCH (00:51)
[2019-09-19 07:19] VITALS: BP 130/65; TEMP 98.8
[2019-09-19] MEDS: Aspirin 81 mg Enteric Coated Tablet PO SCH (08:22)
[2019-09-19] MEDS: Pantoprazole 40 MG VIAL IVP SCH (08:22)
[2019-09-19] MEDS: Doxycycline 100 MG CAP PO SCH (08:22)
[2019-09-19] MEDS: Polyethylene Glycol 3350 17 GM Packet PO SCH (08:22)
[2019-09-19 10:35] LABS: #Eosinphils 1.1 thou/uL (0.0-0.7); #Lymphocytes 0.9 thou/uL (1.20-3.40); #Monocytes 0.7 thou/uL (0.11-0.59); #Neutrophils 4.6 thou/uL (1.40-6.50); %Basophils 0.6 % (0.0-1.0); %Eosinophils 15.2 % (0.0-10.0); %Lymphocytes 12.2 % (21.0-51.0); %Monocytes 9.6 % (0.0-10.0); %Neutrophils 62.4 % (42.0-75.0); Hemoglobin 9.7 g/dL (14.0-18.0); Mean Corpuscular HGB CONC 32.4 g/dL (32.0-36.0); Mean Corpuscular Volume 83.4 fL (78.0-98.0); Mean Platelet Volume 6.2 fL (7.4-10.4); Platelet Count 429 thou/uL (130-400); RBC Distribution Width 13.8 % (11.5-14.5); White Blood Cell (WBC) Count 7.3 thou/uL (4.8-10.8)
[2019-09-19 10:57] LABS: Anion Gap 11 mmol/L (10-20); BUN (Urea Nitrogen) 11 mg/dL (8.4-25.7); Calc. Creatinine Clearance 42 mL/min (70-130); Calcium 8.6 mg/dL (7.8-10.44); Carbon Dioxide 26 mmol/L (23-31); Chloride 104 mmol/L (98-107); Estimated GFR-MDRD 65; Glucose 116 mg/dL (83-110); Potassium 3.9 mmol/L (3.5-5.1); Sodium 137 mmol/L (136-145)
--- NOTE | 2019-09-19 13:10 | PDOC.HOSPP ---
- Subjective Encounter Date: 09/19/19 Encounter Time: 13:07 Subjective: Mr. Pepper was seen today in follow-up of generalized weakness. He tells me he is feeling better today. He feels ready to go home. - Objective Vital Signs & Weight: Vital Signs (12 hours) Temp Pulse Resp BP BP Pulse Ox 09/19/19 08:00 95 09/19/19 07:18 98.8 F 68 16 130/65 95 09/19/19 05:00 98.4 F 72 18 135/74 96 Weight Admit Weight 119 lb 15.962 oz Weight 119 lb 15.962 oz I&O: 09/18/19 09/19/19 09/20/19 06:59 06:59 06:59 Intake Total 3650 1550 1450 Output Total 3300 400 750 Balance 350 1150 700 Result Diagrams: 09/19/19 10:22 09/19/19 10:22 Hospitalist ROS - Medication Medications: Active Medications Generic Name Dose Route Start Last Admin Trade Name Freq PRN Reason Stop Dose Admin Acetaminophen 650 mg 09/15/19 16:39 09/18/19 17:55 Tylenol PO 650 mg Q4H PRN Administration Headache/Fever/Mild Pain (1-3) Aspirin 81 mg 09/18/19 09:00 09/19/19 08:22 Ecotrin PO 81 mg DAILY TARA Administration Doxycycline Hyclate 100 mg 09/17/19 21:00 09/19/19 08:22 Vibramycin PO 100 mg BID TARA Administration Pantoprazole Sodium 40 mg 09/16/19 21:00 09/19/19 08:22 Protonix IVP 40 mg Q12HR TARA Administration Polyethylene Glycol 17 gm 09/16/19 09:00 09/19/19 08:22 Miralax PO 17 gm DAILY TARA Administration Saccharomyces Boulardii 250 mg 09/17/19 18:00 09/18/19 17:55 Florastor PO 250 mg 1800 TARA Administration - Exam Eye: PERRL Heart: RRR, no murmur, no gallops, no rubs, normal peripheral pulses Respiratory: CTAB, no wheezes, no rales, no ronchi, normal chest expansion Gastrointestinal: soft, non-tender, non-distended, normal bowel sounds Extremities: no cyanosis, no edema Hosp A/P (1) Acute bronchitis Code(s): J20.9 - ACUTE BRONCHITIS, UNSPECIFIED Status: Acute (2) Tobacco abuse Code(s): Z72.0 - TOBACCO USE Status: Chronic (3) Anemia, chronic disease Code(s): D63.8 - ANEMIA IN OTHER CHRONIC DISEASES CLASSIFIED ELSEWHERE Status : Chronic (4) Generalized weakness Code(s): R53.1 - WEAKNESS Status: Acute - Plan * Bronchitis- improved * Continue antibiotics, and duonebs * Continue Neb treatments * Anemia- he has an appropriate response post transfusion. * He feels ready for discharge, and the number for Provider Services has been given to him * Stable for discharge
--- NOTE | 2019-09-19 15:03 | DIS ---
DATE OF ADMISSION: 09/15/2019 DATE OF DISCHARGE: 09/19/2019 PRIMARY CARE PHYSICIAN: Dr. Cook. DISCHARGE DISPOSITION: Home. DISCHARGE DIAGNOSES: 1. Acute bronchitis. 2. Acute on chronic anemia due to chronic disease. 3. Probable chronic obstructive pulmonary disease .. 4. Tobacco use. 5. History of peptic ulcer disease. DISCHARGE MEDICATIONS: Include 1. Aspirin 81 mg daily. 2. Omeprazole 20 mg daily. 3. Doxycycline 100 mg twice a day for 5 days. CODE STATUS: Full code. ALLERGIES: PENICILLIN G. HOSPITAL COURSE: Mr. Pepper is a pleasant 79-year-old gentleman, who was admitted to the hospital after he has been complaining of generalized weakness, cough and congestion and feeling dizzy and nauseated. He was evaluated in the ER and found to be severely anemic with a hemoglobin of 8.1. Iron studies were done which demonstrated findings consistent with anemia of chronic disease. He was evaluated by Gastroenterology and it was felt that he did not require endoscopy during this hospital stay. He was given a unit of blood, which did help with his symptoms. He was also started on antibiotics as well as DuoNeb for a mild bronchitis. He did admit that he feels like he needs additional assistance at home and for this reason, provider service's number was given to him so that he could apply for this in the outpatient setting. He says he had already tried Meals on Wheels, which he lives too far out to obtain and he had already talked to his primary care physician about this before in the past. Hopefully, he will qualify for the provider services to help with meal planning and meal preparation in the home. Otherwise, the patient is clinically much improved. He has been instructed to follow up with his primary care physician in approximately 1 week. Job ID: [id number]
== END 2019-09-19 14:50 | disposition home or self-care (01) | DRG 202 ==
LOC: ERS 08:12 → T4-B 11:38 → OBSVTOIN 11:38
PROVIDERS: ADMIT Hospitalist; ATTEND Hospitalist
PROC: 30233N1 Transfusion of Nonautologous Red Blood Cells into Peripheral Vein, Percutaneous Approach (ICD-10-PCS; principal; 2019-09-18)
DX: J20.9 Acute bronchitis, unspecified (principal); J44.0 Chronic obstructive pulmonary disease with (acute) lower respiratory infection; E87.1 Hypo-osmolality and hyponatremia; F17.210 Nicotine dependence, cigarettes, uncomplicated; I95.1 Orthostatic hypotension; D63.1 Anemia in chronic kidney disease; N18.3 Chronic kidney disease, stage 3 (moderate); I12.9 Hypertensive chronic kidney disease with stage 1 through stage 4 chronic kidney disease, or unspecified chronic kidney disease; Z87.11 Personal history of peptic ulcer disease; Z79.899 Other long term (current) drug therapy
CPT/HCPCS: 36415; 36430; 71045; 80048; 80053; 81003; 82274; 82728; 83540; 83550; 83605; 83690; 83880; 84145; 84484; 85014; 85018; 85025; 85049; 86850; 86900; 86901; 87040; 87804; 93005; 94640; 96365; 96375; C9113; J1956; J2405; J2916; J2930; J3490; J7620; P9016

== ENCOUNTER 2019-12-08 07:57 | Emergency (ER) | payer MEDICARE, MEDICAID ==
[2019-12-08 08:27] LABS: #Eosinphils 0.1 thou/uL (0.0-0.7); #Lymphocytes 0.8 thou/uL (1.20-3.40); #Monocytes 0.7 thou/uL (0.11-0.59); #Neutrophils 6.8 thou/uL (1.40-6.50); %Basophils 0.4 % (0.0-1.0); %Eosinophils 0.6 % (0.0-10.0); %Lymphocytes 9.4 % (21.0-51.0); %Neutrophils 81.6 % (42.0-75.0); Hemoglobin 11.1 g/dL (14.0-18.0); Mean Corpuscular HGB CONC 30.5 g/dL (32.0-36.0); Mean Corpuscular Hemoglobin 26.5 pg (27.0-31.0); Mean Corpuscular Volume 86.8 fL (78.0-98.0); Mean Platelet Volume 6.7 fL (7.4-10.4); Platelet Count 382 thou/uL (130-400); RBC Distribution Width 14.4 % (11.5-14.5); Red Blood Cell (RBC) Count 4.18 mill/uL (4.70-6.10); White Blood Cell (WBC) Count 8.3 thou/uL (4.8-10.8)
--- NOTE | 2019-12-08 08:34 | RAD ---
Chest 2 views HISTORY: Cough. COMPARISON: Multiple exams back to 11/28/2016. FINDINGS: Cardiac silhouette and pulmonary vasculature are unremarkable. Mediastinum is midline with aortic calcification. Lungs remain hyperinflated. Mild parenchymal scarring at the posterior lung bases on the lateral view. Proximal opacity is less pronounced than on the 2017 exam. No confluent airspace consolidation, pneumothorax, or pleural fluid. IMPRESSION: Pulmonary hyperinflation and other chronic-type findings are stable. Atherosclerosis.
[2019-12-08 08:38] LABS: ALT (SGPT) 22 U/L (8-55); AST (SGOT) 27 U/L (5-34); Albumin 4.1 g/dL (3.4-4.8); Alkaline Phosphatase 71 U/L (40-110); Anion Gap 12 mmol/L (10-20); BUN (Urea Nitrogen) 17 mg/dL (8.4-25.7); Bilirubin, Total 1.1 mg/dL (0.2-1.2); Calc. Creatinine Clearance 0 mL/min (70-130); Calcium 9.3 mg/dL (7.8-10.44); Carbon Dioxide 25 mmol/L (23-31); Chloride 100 mmol/L (98-107); Estimated GFR-MDRD 49; Globulin 4.2 g/dL (2.4-3.5); Glucose 111 mg/dL (83-110); Protein, Total 8.3 g/dL (5.8-8.1); Sodium 133 mmol/L (136-145)
[2019-12-08 09:53] LABS: Bilirubin Negative (Negative); Blood, Urine Negative (Negative); Clarity Clear (Clear); Glucose, Urine (Dipstick) Normal (Negative); Leukocyte Negative Leu/uL (Negative); Nitrite Negative (Negative); Protein, Urine (Dipstick) 10 mg/dL (Neg-Trace); Urobilinogen Normal mg/dL (Less than 2)
== END 2019-12-08 10:45 | disposition home or self-care (01) ==
LOC: ERS 07:57
DX: R05 Cough (principal); R53.1 Weakness; I10 Essential (primary) hypertension; F17.210 Nicotine dependence, cigarettes, uncomplicated; Z79.82 Long term (current) use of aspirin
CPT/HCPCS: 71046; 80053; 81003; 84484; 85025; 87804; 93005; 96360; 96361

== ENCOUNTER 2020-10-19 12:13 | Inpatient (IN) | payer MEDICARE, MEDICAID ==
[2020-10-19 13:06] LABS: #Basophils 0.1 thou/uL (0.0-0.2); #Eosinphils 0.2 thou/uL (0.0-0.7); #Lymphocytes 1.2 thou/uL (1.20-3.40); #Monocytes 0.7 thou/uL (0.11-0.59); #Neutrophils 7.6 thou/uL (1.40-6.50); %Basophils 0.6 % (0.0-1.0); %Eosinophils 2.4 % (0.0-10.0); %Lymphocytes 12.2 % (21.0-51.0); %Monocytes 7.5 % (0.0-10.0); %Neutrophils 77.3 % (42.0-75.0); Hemoglobin 7.2 g/dL (14.0-18.0); Mean Corpuscular HGB CONC 30.9 g/dL (32.0-36.0); Mean Corpuscular Hemoglobin 23.4 pg (27.0-31.0); Mean Corpuscular Volume 75.7 fL (78.0-98.0); Mean Platelet Volume 6.1 fL (7.4-10.4); Platelet Count 524 thou/uL (130-400); RBC Distribution Width 14.7 % (11.5-14.5); Red Blood Cell (RBC) Count 3.07 mill/uL (4.70-6.10); White Blood Cell (WBC) Count 9.8 thou/uL (4.8-10.8)
--- NOTE | 2020-10-19 13:19 | RAD ---
PORTABLE CHEST 1 VIEW: Date: 10/19/2020 Time: 1304 hours HISTORY: Weakness, chills, malaise. COMPARISON: 07/19/2020. FINDINGS: The heart size is normal. Changes of COPD are again seen. No lobar consolidation, pneumothoraces, or pleural effusions are identified. IMPRESSION: No acute process. POS: AH
[2020-10-19 13:30] LABS: ALT (SGPT) 24 U/L (8-55); AST (SGOT) 30 U/L (5-34); Albumin 3.7 g/dL (3.4-4.8); Alkaline Phosphatase 66 U/L (40-110); Anion Gap 11 mmol/L (10-20); BUN (Urea Nitrogen) 22 mg/dL (8.4-25.7); Bilirubin, Total 0.5 mg/dL (0.2-1.2); CK (CPK) 77 U/L (30-200); Calc. Creatinine Clearance 0 mL/min (70-130); Calcium 8.5 mg/dL (7.8-10.44); Carbon Dioxide 26 mmol/L (23-31); Chloride 102 mmol/L (98-107); Globulin 4.3 g/dL (2.4-3.5); Glucose 92 mg/dL (83-110); Lipase 26 U/L (8-78); Potassium 4.1 mmol/L (3.5-5.1); Sodium 135 mmol/L (136-145)
[2020-10-19 15:53] LABS: Bilirubin Negative (Negative); Blood, Urine Negative (Negative); Clarity Clear (Clear); Glucose, Urine (Dipstick) Normal (Negative); Ketone, Urine Negative (Negative); Leukocyte Negative Leu/uL (Negative); Nitrite Negative (Negative); Protein, Urine (Dipstick) Negative (Neg-Trace); Specific Gravity, Urine 1.018 (1.002-1.036); Urobilinogen Normal mg/dL (Less than 2); pH, Urine 5.5 (5.0-9.0)
--- NOTE | 2020-10-19 18:34 | PDOC.HHP ---
Hospitalist HPI - History of Present Illness Dizziness, weakness History of Present Illness: PCP: Dr. Cook Patient is an 80-year-old male with a past medical history significant for COPD, HTN and HLD that presents to the emergency department for the above complaint. The patient reports feeling generally weak for the past 7 days. He says that his symptoms are only present with exertion. He reports that he feels like he has to "sit down" during ambulation, basically feeling fatigued. He denies masha tigo. He reports that he did fall approximately 1 week ago, however, he fell forward contacting his knees and bilateral hands on the ground. He did not hit his head or lose consciousness. He denies any headaches, neck stiffness, difficulty speaking, changes in speech or weakness to his extremities. He denies any fever or illness. He denies any chest pain, heart palpitations, shortness of breath or wheezing. He does have a chronic, intermittent, productive cough. Sometimes the sputum is clear and every once in a while it is green. Again, he denies feeling short of breath and has no fever or chills. No known Covid contacts. Denies any loss of smell or taste. He denies any abdominal pain, nausea, vomiting, hematemesis, hemoptysis, or hematochezia/melena. He denies any dysuria or hematuria. ED Course: VITAL SIGNS Aslly Oct 19, 2020 12:52 LASHANDA Azevedo Jt BP: 131/64, Pulse: 85, Resp: 20, Temp: 98.6 (Oral), Pain: 0, O2 sat: 99 on (Room Air), Time: 10/19/2020 12:52. VITAL SIGNS Sally Oct 19, 2020 14:30 LASHANDA Azevedo Jt BP: 139/66, Pulse: 85, Resp: 20, Pain: 0, O2 sat: 100 on (Room Air), Time: 10/19/2020 14:30. VITAL SIGNS Sally Oct 19, 2020 15:30 LASHANDA Azevedo Jt BP: 134/65, Pulse: 85, Resp: 18, Temp: 98.6 (Oral), Pain: 0, O2 sat: 100 on (Room Air), Time: 10/19/2020 15:30. VITAL SIGNS Sally Oct 19, 2020 16:45 Azevedo, RN, Jt BP: 139/68, Pulse: 90, Resp: 15, Pain: 0, O2 sat: 100 on (Room Air), Time: 10/19/2020 16:45. VITAL SIGNS Sally Oct 19, 2020 17:55 LASHANDA Azevedo, Jt BP: 126/54, Pulse: 102, Resp: 20, Temp: 99.0 (Oral), Pain: 0, O2 sat: 100 on (Room Air), Time: 10/19/2020 17:55. Medications: 1 unit PRBCs Hospitalist ROS - Review of Systems All other systems reviewed; all pertinent +/- noted in HPI/Subj - Medication Medications: aspirin oral tablet : Strength - 81 mg : ORAL Patient Dose: Unknown. Allergies: Penicillin Hospitalist History - Past Medical History Source: patient, RN notes reviewed Cardiac: reports: HTN, Hyperlipidemia Pulmonary: reports: COPD Gastrointestinal: reports: Peptic ulcer disease ((1972)) - Past Surgical History Past Surgical History: reports: no pertinent history - Family History Family History: reports: Other (Noncontributory for coagulopathy.) - Social History Smoking Status: Current every day smoker (Greater than 40-year half pack per day habit) Tobacco Type: cigarettes Alcohol: reports: None Drugs: reports: none Living Situation: With Family Activity level: uses cane/walker - Exam General Appearance: NAD, awake alert. negative: ill appearing Eye: anicteric sclera ENT: normocephalic atraumatic, moist mucosa Neck: supple, symmetric Heart: RRR, no murmur, no gallops, no rubs, normal peripheral pulses Respiratory: CTAB, no wheezes, no rales, no ronchi, normal chest expansion, no tachypnea Gastrointestinal: soft, non-tender, non-distended, normal bowel sounds, no guarding, no rigidity Extremities: no cyanosis, no edema Psychiatric: normal affect, A&O x 3 Hospitalist Results - Labs Result Diagrams: 10/19/20 20:08 10/19/20 12:51 Lab results: WBC 9.8 thou/uL (4.8-10.8) 10/19/20 12:51 Hgb 7.2 g/dL (14.0-18.0) L 10/19/20 12:51 Hct 23.2 % (42.0-52.0) L 10/19/20 12:51 MCV 75.7 fL (78.0-98.0) L 10/19/20 12:51 Plt Count 524 thou/uL (130-400) H 10/19/20 12:51 Neutrophils % 77.3 % (42.0-75.0) H 10/19/20 12:51 Sodium 135 mmol/L (136-145) L 10/19/20 12:51 Potassium 4.1 mmol/L (3.5-5.1) 10/19/20 12:51 Chloride 102 mmol/L (98-107) 10/19/20 12:51 Carbon Dioxide 26 mmol/L (23-31) 10/19/20 12:51 BUN 22 mg/dL (8.4-25.7) 10/19/20 12:51 Creatinine 1.38 mg/dL (0.7-1.3) H 10/19/20 12:51 Glucose 92 mg/dL (83-110) 10/19/20 12:51 Lactic Acid 1.3 mmol/L (0.5-2.2) 10/19/20 12:51 Calcium 8.5 mg/dL (7.8-10.44) 10/19/20 12:51 Total Bilirubin 0.5 mg/dL (0.2-1.2) 10/19/20 12:51 AST 30 U/L (5-34) 10/19/20 12:51 ALT 24 U/L (8-55) 10/19/20 12:51 Alkaline Phosphatase 66 U/L (40-110) 10/19/20 12:51 Creatine Kinase 77 U/L (30-200) 10/19/20 12:51 Troponin I Less than 0.010 ng/mL (< 0.028) 10/19/20 12:51 Serum Total Protein 8.0 g/dL (5.8-8.1) 10/19/20 12:51 Albumin 3.7 g/dL (3.4-4.8) 10/19/20 12:51 Lipase 26 U/L (8-78) 10/19/20 12:51 Urine Ketones Negative mg/dL (Negative) 10/19/20 15:36 Urine Blood Negative (Negative) 10/19/20 15:36 Urine Nitrite Negative (Negative) 10/19/20 15:36 Ur Leukocyte Esterase Negative [place]/uL (Negative) 10/19/20 15:36 - EKG Interpretation EK lead EKG interpreted by Emergency Department Physician at time of study, 12 lead EKG shows normal sinus rhythm, Rate (beats per minute): 84, with no ectopics, Conduction normal, ST segments normal, T waves normal, [place] normal, Clinical impression: Normal EKG. - Radiology Interpretation Chest x-ray Status: report reviewed by me Additional Comment: FINDINGS: The heart size is normal. Changes of COPD are again seen. No lobar consolidation, pneumothoraces, or pleural effusions are identified. Hospitalist H&P A/P - Problem (1) Symptomatic anemia Code(s): D64.9 - ANEMIA, UNSPECIFIED Status: Acute (2) Generalized weakness Code(s): R53.1 - WEAKNESS Status: Acute (3) HTN (hypertension) Code(s): I10 - ESSENTIAL (PRIMARY) HYPERTENSION Status: Chronic (4) COPD (chronic obstructive pulmonary disease) Status: Chronic (5) HLD (hyperlipidemia) Code(s): E78.5 - HYPERLIPIDEMIA, UNSPECIFIED Status: Chronic (6) Tobacco abuse Code(s): Z72.0 - TOBACCO USE Status: Chronic - Plan Plan: 80/M with PMH HTN, HLD, COPD presents for generalized weakness. Admit to medical floor, observation status. Expected length of stay less than 2 midnights. Presented stable vital signs. EKG normal sinus rhythm, troponin negative. Hemoglobin 7.2, hematocrit 23.2, platelets 524 LA 1.3, WBC 9.8 UA unremarkable Fecal occult blood test pending Blood/urine cultures pending #Symptomatic anemia Receiving 1 unit PRBCs in ER. N.p.o. Start PPI. Consult GI. Trend H&H, check PT/INR, iron studies, folate/B12 Orthostatic vital signs. #Generalized weakness Likely related to problem #1. #HTN Presented normotensive. Takes no home medications for this. Monitor BP. #COPD Chronic. Takes no home medications for this. Add as needed nebulizers and Mucinex. #HLD Chronic. Takes no home medications for this. Check FLP in a.m. #Tobacco abuse Half pack per day greater than 40-year history. Unwilling to quit. Counseled smoking cessation. SCDs for DVT prophylaxis. No pharmacological DVT prophylaxis. Protonix for GI prophylaxis. Full code. Discussed the case with Dr. Orta.
[2020-10-19] MEDS ORDERED: Guaifenesin DM 100-10/5 ML UDCUP PO PRN (18:50)
[2020-10-19] MEDS ORDERED: Ondansetron PF 4 MG/2 ML Vial IVP PRN (18:50)
[2020-10-19] MEDS ORDERED: Acetaminophen 325 MG TAB PO PRN (18:50)
[2020-10-19] MEDS ORDERED: Ondansetron ODT 4 MG TAB PO PRN (18:50)
[2020-10-19 20:19] LABS: Reticulocyte Count 1.6 % (0.5-1.5)
[2020-10-19 20:20] LABS: Hemoglobin 7.6 g/dL (14.0-18.0)
[2020-10-19 20:25] LABS: INR-International Normal Ratio 1.1; PTT 34.9 sec (22.9-36.1); Prothrombin Time 13.9 sec (12.0-14.7)
[2020-10-19 20:36] LABS: Iron 19 ug/dL (65-175); Iron Binding Capacity, Total 336 mcg/dL (261-462)
[2020-10-19] MEDS: Pantoprazole 40 MG VIAL IVP SCH (20:56)
[2020-10-19 21:20] LABS: Ferritin 13.11 ng/mL (22-322)
[2020-10-20 01:20] LABS: Hemoglobin 7.4 g/dL (14.0-18.0)
[2020-10-20] MEDS ORDERED: Iron, Sodium Ferric Gluconate 250 MG in Sodium Chloride 0.9% 100 ML IVPB SCH ×2 (03:00)
[2020-10-20 06:10] LABS: #Basophils 0.1 thou/uL (0.0-0.2); #Eosinphils 1.8 thou/uL (0.0-0.7); #Lymphocytes 1.6 thou/uL (1.20-3.40); #Monocytes 0.8 thou/uL (0.11-0.59); #Neutrophils 4.3 thou/uL (1.40-6.50); %Basophils 0.8 % (0.0-1.0); %Eosinophils 20.5 % (0.0-10.0); %Lymphocytes 18.6 % (21.0-51.0); %Monocytes 9.7 % (0.0-10.0); %Neutrophils 50.4 % (42.0-75.0); Hemoglobin 7.7 g/dL (14.0-18.0); Mean Corpuscular HGB CONC 30.9 g/dL (32.0-36.0); Mean Corpuscular Hemoglobin 24.2 pg (27.0-31.0); Mean Corpuscular Volume 78.3 fL (78.0-98.0); Mean Platelet Volume 6.2 fL (7.4-10.4); Platelet Count 442 thou/uL (130-400); RBC Distribution Width 16.5 % (11.5-14.5); Red Blood Cell (RBC) Count 3.18 mill/uL (4.70-6.10); White Blood Cell (WBC) Count 8.6 thou/uL (4.8-10.8)
[2020-10-20 06:11] LABS: Anion Gap 13 mmol/L (10-20); BUN (Urea Nitrogen) 18 mg/dL (8.4-25.7); Calc. Creatinine Clearance 30 mL/min (70-130); Calcium 8.2 mg/dL (7.8-10.44); Carbon Dioxide 25 mmol/L (23-31); Cardiac Risk 3.2 (Less than 4.5); Chloride 105 mmol/L (98-107); Cholesterol 100 mg/dl (< 200 Desired); Glucose 94 mg/dL (83-110); HDL Cholesterol 31 mg/dL (>60 Neg Risk); LDL Cholesterol, Calculated 56 mg/dL; Potassium 4.5 mmol/L (3.5-5.1); Sodium 138 mmol/L (136-145); Triglycerides 65 mg/dL (Less than 150)
[2020-10-20] MEDS ORDERED: FLU VACC QS2020-21(65YR UP)/PF 240 MCG/0.7 ML SYRINGE IM ONE (09:00)
[2020-10-20 09:31] LABS: Hemoglobin 9.2 g/dL (14.0-18.0)
[2020-10-20] MEDS ORDERED: Polyethylene Glycol 3350 17 GM Packet PO PRN (10:12)
[2020-10-20] MEDS: Folic Acid 1 MG TAB PO SCH (11:31)
[2020-10-20] MEDS: Pantoprazole 40 MG VIAL IVP SCH ×2 (11:31→20:35)
[2020-10-20 12:03] VITALS: BMI 16.0
[2020-10-20 13:00] LABS: Hemoglobin 9.2 g/dL (14.0-18.0)
--- NOTE | 2020-10-20 17:08 | PDOC.HOSPP ---
- Subjective Encounter Date: 10/20/20 Encounter Time: 12:30 Subjective: Patient up in bed denies any complaints. - Objective Vital Signs & Weight: Vital Signs (12 hours) Temp Pulse Pulse Resp BP BP Pulse Ox 10/20/20 15:35 98.5 F 71 16 138/71 96 10/20/20 11:53 98.4 F 71 16 131/70 96 10/20/20 07:47 98.6 F 71 16 124/70 96 10/20/20 05:14 98.4 F 73 16 111/63 96 Weight Admit Weight 103 lb Weight 102 lb 4.8 oz I&O: 10/19/20 10/20/20 10/21/20 06:59 06:59 06:59 Intake Total 0 Output Total 600 Balance -600 Result Diagrams: 10/20/20 12:51 10/20/20 05:31 Hospitalist ROS - Review of Systems Cardiovascular: denies: chest pain, palpitations, orthopnea, paroxysmal noc. dyspnea, edema, light headedness, other Gastrointestinal: denies: nausea, vomiting, abdominal pain, diarrhea, constipation, melena, hematochezia, other Genitourinary: denies: dysuria, frequency, incontinence, hematuria, retention, other - Medication Medications: Active Medications Generic Name Dose Route Start Last Admin Trade Name Freq PRN Reason Stop Dose Admin Folic Acid 1 mg 10/20/20 09:00 10/20/20 11:31 Folic Acid 1 Mg Tab PO 1 mg DAILY TARA Administration Pantoprazole Sodium 40 mg 10/19/20 21:00 10/20/20 11:31 Pantoprazole 40 Mg Vial IVP 40 mg Q12HR TARA Administration - Exam Neck: negative: supple, symmetric, no JVD, no thyromegaly, no lymphadenopathy, no carotid bruit, JVD Heart: negative: RRR, no murmur, no gallops, no rubs, normal peripheral pulses, irregular, diminshed peripheral pulses, murmur present, II/IV, III/IV Respiratory: negative: CTAB, no wheezes, no rales, no ronchi, normal chest expansion, no tachypnea, normal percussion, rales, rhonchi, tachypneic, wheezes Gastrointestinal: negative: soft, non-tender, non-distended, normal bowel sounds, no palpable masses, no hepatomegaly, no splenomegaly, no bruit, no guarding, no rigidity, tender to palpation, distended, diminished bowl sounds, voluntary guarding Hosp A/P (1) Generalized weakness Code(s): R53.1 - WEAKNESS Status: Acute (2) Symptomatic anemia Code(s): D64.9 - ANEMIA, UNSPECIFIED Status: Acute (3) HLD (hyperlipidemia) Code(s): E78.5 - HYPERLIPIDEMIA, UNSPECIFIED Status: Chronic (4) HTN (hypertension) Code(s): I10 - ESSENTIAL (PRIMARY) HYPERTENSION Status: Chronic (5) Iron deficiency anemia Code(s): D50.9 - IRON DEFICIENCY ANEMIA, UNSPECIFIED Status: Acute - Plan Patient states that he has never had a colonoscopy. Patient n.p.o. GI consulted. Patient denies taking any NSAIDs. Patient received 1 unit of PRBC. H&H stable. We will continue to monitor.
[2020-10-20 17:58] LABS: Hemoglobin 8.9 g/dL (14.0-18.0)
[2020-10-21 05:32] LABS: #Eosinphils 1.6 thou/uL (0.0-0.7); #Lymphocytes 1.4 thou/uL (1.20-3.40); #Monocytes 0.8 thou/uL (0.11-0.59); #Neutrophils 3.6 thou/uL (1.40-6.50); %Basophils 0.5 % (0.0-1.0); %Eosinophils 21.2 % (0.0-10.0); %Lymphocytes 18.6 % (21.0-51.0); %Monocytes 11.1 % (0.0-10.0); %Neutrophils 48.7 % (42.0-75.0); Hemoglobin 9.2 g/dL (14.0-18.0); Mean Corpuscular HGB CONC 30.4 g/dL (32.0-36.0); Mean Corpuscular Hemoglobin 24.1 pg (27.0-31.0); Mean Corpuscular Volume 79.3 fL (78.0-98.0); Mean Platelet Volume 6.3 fL (7.4-10.4); Platelet Count 462 thou/uL (130-400); RBC Distribution Width 16.4 % (11.5-14.5); Red Blood Cell (RBC) Count 3.82 mill/uL (4.70-6.10); White Blood Cell (WBC) Count 7.5 thou/uL (4.8-10.8)
[2020-10-21 05:51] LABS: Anion Gap 13 mmol/L (10-20); BUN (Urea Nitrogen) 16 mg/dL (8.4-25.7); Calc. Creatinine Clearance 30 mL/min (70-130); Calcium 8.5 mg/dL (7.8-10.44); Carbon Dioxide 25 mmol/L (23-31); Chloride 106 mmol/L (98-107); Glucose 96 mg/dL (83-110); Potassium 4.1 mmol/L (3.5-5.1); Sodium 140 mmol/L (136-145)
--- NOTE | 2020-10-21 08:42 | CON ---
DATE OF CONSULTATION: 10/20/2020 REASON FOR CONSULTATION: 1. Anemia. 2. History of dizziness and dyspnea with minimal exertion. HISTORY OF PRESENT ILLNESS: Harlan Pepper is a very pleasant 80-year-old male with a history of dyspnea, mild dizziness. He says when he walks around, he starts feeling dizziness and he has sitting down. However, he has no chest pain. No orthopnea, PND. The dyspnea has been going on for the last one week also. The patient was seen in the ER yesterday and had a CBC done. He was found to be anemic. He has been transfused 1 unit of packed RBCs. He says he is actually feeling better today. The patient was seen by Dr. Gildardo Ayon in 2019 for anemia. At that time, his CBC showed hemoglobin of 8.5. Going over [employer], the anemia appears more chronic than acute. The patient had history of peptic ulcer disease in , underwent surgery. Over the years, he had done very well. Denies dyspepsia, abdominal pain, nausea, dysphagia, odynophagia. He has no dyspepsia or any heartburn. Denies any hematochezia, melena. Bowel movements are fairly regular. He said the stools are usually brown and yellowish. He has not had any fresh blood in his stool or any black tarry stool. The patient actually feeling better today after transfusion. When Dr. Gildardo Ayon saw the patient in 2019, he felt the anemia was an anemia of chronic disease as per his high iron level and TIBC, does not correlate with iron deficiency. At that time, Dr. Ayon not recommended endoscopic studies. The patient denies any other relevant symptoms. He is a chronic smoker before he cut down his smoking to very little. He complains of dyspnea and also has history of chronic coughing and spitting up some mucoid material. No fever. He has never been told to have any COPD, although his history is suggestive of COPD. He does not use inhalers or any bleeding treatment. No relevant history. ALLERGIES: PENICILLIN. SOCIAL HISTORY: Former smoker. No history alcohol intake. MEDICAL ILLNESSES: 1. Anemia of chronic diseases. 2. COPD. 3. Hypertension. 4. Hyperlipidemia. 5. Positive history of peptic ulcer with surgery in the . No history heart disease. No diabetes. SURGERIES: No other major surgeries. FAMILY HISTORY: No family history of malignancy, heart disease, or lung disease. REVIEW OF SYSTEMS: CONSTITUTIONAL: No history of weight loss, has some fatigue and tiredness lately and also has some dyspnea with exertion. He also has been feeling dizzy. No weight loss. HEAD: No chronic headache. No syncope. ENT: No impaired vision. No diplopia. No hearing loss. No sore throat. No nose bleed. NECK: No stiffness or any limitation of movement. LUNGS: History of chronic coughing and spitting mucoid material. No hemoptysis. Also mild dyspnea on exertion. CARDIOVASCULAR: Mild dyspnea on exertion. No chest pain. No orthopnea or PND. GI: No relevant history. : No dysuria, hematuria. MUSCULOSKELETAL: Not relevant. NEURO: Not relevant. ENDOCRINE: Not relevant. Hematologic: Not relevant. PHYSICAL EXAMINATION: GENERAL: He is very fragile looking elderly male who appears very comfortable. He is awake, alert, communicative. VITAL SIGNS: Actually very stable. He is afebrile. Pulse is 71, blood pressure 130/70. HEENT: Conjunctivae are clear. NECK: Supple. No adenitis or thyromegaly. CARDIOVASCULAR SYSTEM: Normal heart sounds with systolic murmur. LUNGS: Clear to auscultation. No wheezing heard. However, he has some few scattered rhonchi and mild rales in both bases. ABDOMEN: Soft. He has a midline scar from previous surgery. Abdomen is nondistended. Abdomen is nontender. No organomegaly. No masses. Bowel sounds are normal. EXTREMITIES: Reveal no edema. TECH[employer] SU[employer] 1 [employer]ER: Grossly within normal limits. LABORATORY DATA: On admission; CBC, hemoglobin is 7.2, hematocrit is 23.2, platelet count is 524,000, polymorphs 77, lymphocytes 12, WBC 9800. Hemoglobin after transfusion came up to 9.2, hematocrit 29.3. Retic count 1.6. Chemistry panel, iron is 19, iron saturation is 6%, ferritin 13.1, which is low. TIBC 336. His lytes are normal. BUN is 18, creatinine 1.29, and glucose is 94. Vitamin B12 is 307. Troponin less than 0.010. Going over [employer], he has had anemia over the years. He has blood count as low as 8.29 in the past. IMPRESSION: 1. Dizziness. 2. Dyspnea. 3. anemia. There may be a component of anemia the symptoms. On the last admission in 2019, blood count was 8.9. The patient has no hematochezia, no melena. The anemia appears more chronic than acute. At the present time, his studies shows a mixed picture of possibly iron deficiency versus anemia of chronic disease. He has no specific GI symptoms. 4. Chronic obstructive pulmonary disease. 5. Hypertension. 6. Hyperlipidemia. 7. Past history of peptic ulcer surgery. RECOMMENDATION: 1. Regular diet today. 2. Will plan for EGD. The patient is not keen on having any endoscopic studies done and he wants to go home and come back for outpatient. However, I did speak to him and convinced him to have an EGD. At the present time have a colonoscopy and deferred the colonoscopy for time being. I will plan for EGD tomorrow and make further recommendation. Job ID: [id number]
[2020-10-21] MEDS: Folic Acid 1 MG TAB PO SCH (09:00)
[2020-10-21] MEDS: Polyethylene Glycol 3350 17 GM Packet PO SCH (09:00)
[2020-10-21] MEDS: Cyanocobalamin (Vitamin B-12) 1,000 MCG TAB PO SCH (09:00)
[2020-10-21] MEDS: Pantoprazole 40 MG VIAL IVP SCH ×2 (09:05→20:39)
[2020-10-21] MEDS ORDERED: PROPOFOL 200 MG/20 ML VIAL ONE (09:22)
--- NOTE | 2020-10-21 13:58 | PDOC.HOSPP ---
- Subjective Subjective: Seen examined. No evidence of active bleeding. Repeated blood hemoglobin stable after transfusion. Plan for EGD later today - Objective Vital Signs & Weight: Vital Signs (12 hours) Temp Pulse Resp BP Pulse Ox 10/21/20 11:52 98.8 F 70 18 136/53 L 96 10/21/20 07:21 98.8 F 79 18 144/66 H 94 L 10/21/20 04:01 98.6 F 67 14 115/65 98 Weight Admit Weight 103 lb Weight 102 lb 4.8 oz I&O: 10/20/20 10/21/20 10/22/20 06:59 06:59 06:59 Intake Total 0 480 940 Output Total 600 675 Balance -600 480 265 Result Diagrams: 10/21/20 05:21 10/21/20 05:21 Radiology Reviewed by me: Yes EKG Reviewed by me: Yes Hospitalist ROS - Medication Medications: Active Medications Generic Name Dose Route Start Last Admin Trade Name Freq PRN Reason Stop Dose Admin Folic Acid 1 mg 10/20/20 09:00 10/20/20 11:31 Folic Acid 1 Mg Tab PO 1 mg DAILY TARA Administration Pantoprazole Sodium 40 mg 10/19/20 21:00 10/20/20 20:35 Pantoprazole 40 Mg Vial IVP 40 mg Q12HR TARA Administration - Exam General Appearance: NAD Eye: PERRL ENT: normocephalic atraumatic Neck: supple Heart: RRR, no murmur Respiratory: CTAB, no wheezes Gastrointestinal: soft, non-tender Skin: normal turgor Neurological: cranial nerve grossly intact Musculoskeletal: normal tone, normal strength, no muscle wasting Psychiatric: normal affect, normal behavior, A&O x 3 Hosp A/P - Plan This is an 80 years old gentleman who has significant past medical history of COPD, hypertension, dyslipidemia, who presented to ED with complaint of generalized weakness for the past week. Further work-up showed that patient had a hemoglobins of 7.2. He is now status post 1 unit of blood transfusion, his hemoglobin went up to 9.2. Patient was seen by GI, plan for endoscopic study Symptomatic anemia --Status post 1 unit of blood transfusion, repeat hemoglobin stable --EGD planned for today. --Appreciate GI input Hypertension essential --Resume home medication Generalized weakness secondary to above --Improved with blood transfusion COPD --prn nebs. Dyslipidemia --home meds
[2020-10-21] MEDS ORDERED: Midazolam HCl 2 mg/2 ml Vial ONE (15:36)
[2020-10-21] MEDS ORDERED: Ketamine 50 MG/ML (10ML VIAL) ONE (15:36)
[2020-10-21] MEDS ORDERED: Promethazine HCl 25 MG/ML VIAL SLOW IVP PRN (15:55)
[2020-10-21] MEDS ORDERED: Ondansetron HCl/PF 4 MG/2 ML Vial IVP PRN (15:55)
[2020-10-21] MEDS ORDERED: Promethazine HCl 25 MG/ML VIAL IM PRN (15:55)
[2020-10-22 05:17] LABS: #Basophils 0.1 thou/uL (0.0-0.2); #Eosinphils 2.1 thou/uL (0.0-0.7); #Lymphocytes 1.3 thou/uL (1.20-3.40); #Monocytes 0.8 thou/uL (0.11-0.59); #Neutrophils 4.1 thou/uL (1.40-6.50); %Basophils 0.9 % (0.0-1.0); %Eosinophils 24.8 % (0.0-10.0); %Lymphocytes 16.1 % (21.0-51.0); %Monocytes 9.1 % (0.0-10.0); Hemoglobin 9.1 g/dL (14.0-18.0); Mean Corpuscular HGB CONC 31.6 g/dL (32.0-36.0); Mean Corpuscular Hemoglobin 25.2 pg (27.0-31.0); Mean Corpuscular Volume 79.8 fL (78.0-98.0); Mean Platelet Volume 6.2 fL (7.4-10.4); Platelet Count 449 thou/uL (130-400); RBC Distribution Width 16.8 % (11.5-14.5); Red Blood Cell (RBC) Count 3.62 mill/uL (4.70-6.10); White Blood Cell (WBC) Count 8.3 thou/uL (4.8-10.8)
[2020-10-22 05:35] LABS: Anion Gap 12 mmol/L (10-20); BUN (Urea Nitrogen) 14 mg/dL (8.4-25.7); Calc. Creatinine Clearance 34 mL/min (70-130); Calcium 8.3 mg/dL (7.8-10.44); Carbon Dioxide 24 mmol/L (23-31); Chloride 105 mmol/L (98-107); Glucose 104 mg/dL (83-110); Potassium 3.8 mmol/L (3.5-5.1); Sodium 137 mmol/L (136-145)
[2020-10-22] MEDS: Pantoprazole 40 MG VIAL IVP SCH (08:52)
[2020-10-22] MEDS: Cyanocobalamin (Vitamin B-12) 1,000 MCG TAB PO SCH (08:53)
[2020-10-22] MEDS: Folic Acid 1 MG TAB PO SCH (08:53)
[2020-10-22] MEDS: Polyethylene Glycol 3350 17 GM Packet PO SCH (08:54)
[2020-10-22 11:44] VITALS: BP 118/66; TEMP 97.7
--- NOTE | 2020-10-22 11:47 | PDOC.DS.DS ---
Provider - Provider Date of Admission: 10/20/20 16:14 Date of Discharge: 10/22/20 Admitting Provider: Abhinav Zavaleta DO Consultations: Gastroentrology (Dr. Murry) Primary Care Physician: Gabriela Cook Course - Hospital Course Hospital Course: Is a pleasant 80 years old male with significant past medical histories of COPD, hypertension, dyslipidemia, presented to ED with complaint of generalized weakness and dizziness. Patient reported that he had not been feeling well for the last few days. He was found to have a hemoglobin of 7.2. He was subsequently admitted to hospitalist for further work-up. Given his symptomatic anemia, he was given a unit of blood transfusion. His blood count went up appropriately to 9.2. GI was consulted. Patient subsequently underwent EGD. His operative report is still pending at the time of discharge. However I discussed with Dr. Murry, no significant findings on his EGD. Since his hemoglobin remained stable above 9. And he is feeling well walking around the [place] without any symptoms. He is okay to discharge the patient home on PPI. Patient to follow-up with his PCP in 1 to 2 weeks. Procedures: EGD performed by Dr. Murry on 10/21/2020 Resuscitation Status: 10/19/20 18:50 Resuscitation Status Routine Co-Sign Provider: Resuscitation Status: FULL: Full Resuscitation Discussed with: patient - Labs Lab Results: 10/22/20 04:55 10/22/20 04:56 Abnormal Lab Results - Last 48 hrs 10/20/20 12:51: Hgb 9.2 L, Hct 29.3 L 10/20/20 17:28: Hgb 8.9 L, Hct 29.0 L 10/21/20 05:21: RBC 3.82 L, Hgb 9.2 L, Hct 30.3 L, MCH 24.1 L, MCHC 30.4 L, RDW 16.4 H, Plt Count 462 H, MPV 6.3 L, Lymphocytes % 18.6 L, Monocytes % 11.1 H, Eosinophils % 21.2 H, Monocytes # 0.8 H, Eosinophils # 1.6 H 10/22/20 04:55: RBC 3.62 L, Hgb 9.1 L, Hct 28.9 L, MCH 25.2 L, MCHC 31.6 L, RDW 16.8 H, Plt Count 449 H, MPV 6.2 L, Lymphocytes % 16.1 L, Eosinophils % 24.8 H, Monocytes # 0.8 H, Eosinophils # 2.1 H Microbiology - Entire Visit 10/19/20 12:51 Venous blood - Right Arm Blood Culture - Preliminary NO GROWTH AT 48 HOURS 10/19/20 12:51 Venous blood - Left Arm Blood Culture - Preliminary NO GROWTH AT 48 HOURS 10/19/20 15:36 Urine voided Urine Culture - Final NO GROWTH AT 36 HOURS - Physical Exam Vitals: Vital Signs (12 hours) Temp Pulse Resp BP BP Pulse Ox 10/22/20 11:26 97.7 F 95 18 118/66 97 10/22/20 07:11 98.8 F 72 18 130/67 96 10/22/20 03:10 99.2 F 72 16 130/70 93 L Weight Admit Weight 103 lb Weight 102 lb 4.8 oz Physical Exam: The patient was seen and examined on the day of discharge. Problem - Problem (1) Symptomatic anemia Code(s): D64.9 - ANEMIA, UNSPECIFIED Status: Acute (2) Generalized weakness Code(s): R53.1 - WEAKNESS Status: Acute (3) COPD (chronic obstructive pulmonary disease) Status: Chronic (4) HLD (hyperlipidemia) Code(s): E78.5 - HYPERLIPIDEMIA, UNSPECIFIED Status: Chronic (5) HTN (hypertension) Code(s): I10 - ESSENTIAL (PRIMARY) HYPERTENSION Status: Chronic (6) Tobacco abuse Code(s): Z72.0 - TOBACCO USE Status: Chronic Plan - Discharge Medications Prescriptions: Pantoprazole [Protonix] 40 mg PO DAILY #30 tab Home Medications: Medication Instructions Recorded Confirmed Type Aspirin [Ecotrin Low Strength] 81 mg PO DAILY 12/02/18 10/19/20 History Pantoprazole [Protonix] 40 mg PO DAILY #30 tab 10/22/20 Rx Allergies: penicillin G Allergy (Verified 12/02/18 12:21) - Discharge Instructions Discharge Instructions:: We have discontinued your omeprazole, and start you on Protonix daily. Avoid NSAIDs including Advil/ibuprofen/Aleve and etc Follow with your PCP in 1 to 2 weeks. Activity:: Activity as Tolerated Nourishment:: Bariatric Diet - Follow up Plan Referrals: KakGabriela washington MD [Primary Care Provider] - (CALL MD'S OFFICE FOR FOLLOW U P APPOINTMENT.) Disposition: HOME Quality - Care Measures CORE MEASURES:: N/A
--- NOTE | 2020-10-22 17:11 | PRG ---
DATE OF SERVICE: 10/22/2020 SUBJECTIVE: This is an 80-year-old male, hospitalized for anemia, dizziness, etc. Found to be anemic on admission. The patient has been transfused. He is feeling better. He refused a colonoscopy and agreed for EGD. The EGD was done yesterday. The EGD showed gastritis, friable gastric mucosa. Biopsy obtained from the area. The patient is doing well postprocedure. He is doing well and is tolerating diet. No abdominal pain. No nausea or vomiting. He is anxious to go home. He tells me he will come back to see me as outpatient for future workup like colonoscopy. He has no complaints. OBJECTIVE: VITAL SIGNS: Afebrile, pulse is 95, blood pressure 118/66. CARDIOVASCULAR SYSTEM: Normal heart sounds. LUNGS: Clear. ABDOMEN: Soft. No organomegaly. No tenderness. RECOMMENDATIONS: The patient will be discharged home today on iron supplement and PPI. He will come back to see me early next month. He is agreeable for outpatient colonoscopy. Job ID: [id number]
--- NOTE | 2020-10-22 17:39 | OP ---
DATE OF PROCEDURE: 10/21/2020 PREOPERATIVE DIAGNOSIS: Anemia. He has no abdominal pain. No dyspepsia, nausea, vomiting. POSTOPERATIVE DIAGNOSES: 1. Normal esophageal mucosa. 2. The gastric lower part of the body. Also mild gastritis and some whitish plaques in his gastric body. 3. Normal duodenum. OPERATIVE PROCEDURE: Esophagogastroduodenoscopy with biopsy. DESCRIPTION OF PROCEDURE: The patient was placed on his left lateral position and was given sedation by Anesthesia Department. A Pentax video gastroscope under direct vision passed down the oropharynx past the GE junction into the stomach. The patient kept gagging and coughing during the procedure. The esophageal mucosa appeared normal. In the GE junction, no pathology seen. Retroflexion failed to show any pathology in fundus or cardia. However, he does have retained food materials and . Also a large amount of bilious material. Mylicon was added to the irrigant solution and washed out. In some areas the gastric body shows whitish plaques. The mucosa was intact. for food material or something else. The area was biopsied. The gastric antrum as well as the gastric body and antrum showed mucosal friability. . The duodenal bulb, descending duodenum, no pathology. Biopsy obtained of the gastric body. The stomach decompressed and the scope removed. RECOMMENDATION: 1. Diet as tolerated. 2. From GI standpoint, can be discharged home tomorrow if the blood count is stable. 3. We will plan for outpatient endoscopy later on in the near future. Job ID: [id number]
== END 2020-10-22 15:00 | disposition home or self-care (01) | DRG 812 ==
LOC: ERS 12:13 → ERHOLD 16:27 → SJJU 19:44 → OBSVTOIN 10-20 16:14
PROVIDERS: ADMIT Family Medicine; ATTEND Family Medicine
PROC: 30233N1 Transfusion of Nonautologous Red Blood Cells into Peripheral Vein, Percutaneous Approach (ICD-10-PCS; principal; 2020-10-19)
PROC: 0DB68ZX Excision of Stomach, Via Natural or Artificial Opening Endoscopic, Diagnostic (ICD-10-PCS; 2020-10-21)
DX: D50.9 Iron deficiency anemia, unspecified (principal); Z20.828 Contact with and (suspected) exposure to other viral communicable diseases; Z28.21 Immunization not carried out because of patient refusal; I10 Essential (primary) hypertension; J44.9 Chronic obstructive pulmonary disease, unspecified; E78.5 Hyperlipidemia, unspecified; K29.70 Gastritis, unspecified, without bleeding; Z87.11 Personal history of peptic ulcer disease; Z87.891 Personal history of nicotine dependence; Z79.82 Long term (current) use of aspirin; Z79.899 Other long term (current) drug therapy
CPT/HCPCS: 36415; 36430; 71045; 80048; 80053; 80061; 81003; 82550; 82607; 82728; 82746; 83540; 83550; 83605; 83690; 84484; 85025; 85046; 85610; 85730; 86850; 86900; 86901; 87040; 87086; 88305; 88312; 93005; 96374; 96376; C9113; G0378; J2250; J2704; J2916; J3490; P9016

== ENCOUNTER 2020-11-21 12:19 | Emergency (ER) | payer MEDICARE, MEDICAID ==
--- NOTE | 2020-11-21 12:47 | RAD ---
Portable frontal chest radiograph: 11/21/2020 COMPARISON: 10/19/2020 HISTORY: Dizziness and weakness, altered mental status FINDINGS: Stable heart and mediastinal contours. Stable mild increased linear interstitial density bi laterally. No pneumothorax or pleural fluid. No focal consolidation or alveolar edema. Stable atherosclerotic calcification of the aortic arch and stable postoperative clips in the medial left up per quadrant. IMPRESSION: Stable appearance of the chest as detailed above.
[2020-11-21 13:01] LABS: #Basophils 0.1 thou/uL (0.0-0.2); #Eosinphils 0.2 thou/uL (0.0-0.7); #Lymphocytes 1.2 thou/uL (1.20-3.40); #Monocytes 0.5 thou/uL (0.11-0.59); #Neutrophils 4.8 thou/uL (1.40-6.50); %Basophils 0.9 % (0.0-1.0); %Eosinophils 2.9 % (0.0-10.0); %Lymphocytes 17.3 % (21.0-51.0); %Monocytes 7.4 % (0.0-10.0); %Neutrophils 71.5 % (42.0-75.0); Hemoglobin 7.1 g/dL (14.0-18.0); Mean Corpuscular HGB CONC 32.5 g/dL (32.0-36.0); Mean Corpuscular Hemoglobin 28.3 pg (27.0-31.0); Mean Corpuscular Volume 87.1 fL (78.0-98.0); Mean Platelet Volume 6.8 fL (7.4-10.4); Platelet Count 372 thou/uL (130-400); RBC Distribution Width 21.9 % (11.5-14.5); White Blood Cell (WBC) Count 6.8 thou/uL (4.8-10.8)
[2020-11-21 13:20] LABS: ALT (SGPT) 10 U/L (8-55); AST (SGOT) 18 U/L (5-34); Albumin 3.2 g/dL (3.4-4.8); Alkaline Phosphatase 49 U/L (40-110); Anion Gap 16 mmol/L (10-20); BUN (Urea Nitrogen) 38 mg/dL (8.4-25.7); Bilirubin, Total 0.3 mg/dL (0.2-1.2); Calc. Creatinine Clearance 0 mL/min (70-130); Calcium 8.4 mg/dL (7.8-10.44); Carbon Dioxide 20 mmol/L (23-31); Chloride 106 mmol/L (98-107); Glucose 118 mg/dL (83-110); Potassium 4.6 mmol/L (3.5-5.1); Protein, Total 6.2 g/dL (5.8-8.1); Sodium 137 mmol/L (136-145)
[2020-11-21] MEDS ORDERED: Pantoprazole 40 MG VIAL ONE (14:41)
--- NOTE | 2020-12-09 21:52 | EKG ---
Test Reason : Blood Pressure : / mmHG Vent. Rate : 089 BPM Atrial Rate : 089 BPM P-R Int : 148 ms QRS Dur : 074 ms QT Int : 342 ms P-R-T Axes : 063 -35 046 degrees QTc Int : 416 ms Normal sinus rhythm Left axis deviation Abnormal ECG Confirmed by ROSELIA ORTEGA DO ([id number]), offline editor VALERIO PATEL ([id number]) on 12/09/2020 9:51:20 PM Referred By: Confirmed By:ROSELIA ORTEGA DO
== END 2020-11-21 17:32 | disposition home or self-care (01) ==
LOC: ERS 12:19
DX: D64.9 Anemia, unspecified (principal); E78.5 Hyperlipidemia, unspecified; I10 Essential (primary) hypertension; F17.220 Nicotine dependence, chewing tobacco, uncomplicated; F17.210 Nicotine dependence, cigarettes, uncomplicated; Z79.82 Long term (current) use of aspirin
CPT/HCPCS: 36430; 71045; 80053; 84484; 85025; 86850; 86900; 86901; 86920; 93005; P9016; 36415; 96374; C9113

== ENCOUNTER 2021-02-14 10:17 | Observation (INO) | payer MEDICARE, MEDICAID ==
[2021-02-14 11:31] LABS: Albumin 3.3 g/dL (3.4-4.8)
[2021-02-14 11:33] LABS: Calcium 8.8 mg/dL (7.8-10.44); Chloride 107 mmol/L (98-107); Potassium 4.2 mmol/L (3.5-5.1); Sodium 138 mmol/L (136-145)
[2021-02-14 11:34] LABS: Globulin 3.4 g/dL (2.4-3.5); Glucose 98 mg/dL (83-110); Protein, Total 6.7 g/dL (5.8-8.1)
[2021-02-14 11:35] LABS: Anion Gap 13 mmol/L (10-20); Carbon Dioxide 22 mmol/L (23-31)
[2021-02-14 11:36] LABS: Bilirubin, Total 0.3 mg/dL (0.2-1.2)
[2021-02-14 11:37] LABS: Alkaline Phosphatase 63 U/L (40-110); Calc. Creatinine Clearance 0 mL/min (70-130)
[2021-02-14 11:38] LABS: BUN (Urea Nitrogen) 24 mg/dL (8.4-25.7)
[2021-02-14 11:38] LABS: Hemoglobin 5.7 g/dL (14.0-18.0); Mean Corpuscular HGB CONC 29.3 g/dL (32.0-36.0); Mean Corpuscular Hemoglobin 22.3 pg (27.0-31.0); Mean Corpuscular Volume 76.3 fL (78.0-98.0); Platelet Count 681 thou/uL (130-400); RBC Distribution Width 17.5 % (11.5-14.5); Red Blood Cell (RBC) Count 2.56 mill/uL (4.70-6.10); White Blood Cell (WBC) Count 7.1 thou/uL (4.8-10.8)
[2021-02-14 11:40] LABS: ALT (SGPT) 13 U/L (8-55)
[2021-02-14 11:47] LABS: Band 2 % (5-11); Eosinophils 25 % (0-10); Hypochromia SLIGHT = 6-15 cells (100X) (0-5/hpf); Lymphocytes 23 % (21-51); MDiff Complete? YES; Microcytosis SLIGHT = 6-15 cells (100X) (0-5/hpf); Monocytes 7 % (0-10); Neutrophil 43 % (42-75); Platelet Morphology Comment Appears Increased; Polychromasia SLIGHT = 2-3 cells (100X) (0-2/hpf)
[2021-02-14 11:49] LABS: AST (SGOT) 16 U/L (5-34)
[2021-02-14 12:31] LABS: Bilirubin Negative (Negative); Blood, Urine Negative (Negative); Clarity Clear (Clear); Glucose, Urine (Dipstick) Normal (Negative); Ketone, Urine Negative (Negative); Leukocyte Negative Leu/uL (Negative); Nitrite Negative (Negative); Protein, Urine (Dipstick) Negative (Neg-Trace); Specific Gravity, Urine 1.018 (1.002-1.036); Urobilinogen Normal mg/dL (Less than 2)
[2021-02-14] MEDS ORDERED: Acetaminophen 325 MG TAB PO PRN (13:04)
[2021-02-14] MEDS ORDERED: Ondansetron PF 4 MG/2 ML Vial IVP PRN (13:04)
[2021-02-14 16:40] VITALS: BMI 19.1
[2021-02-14 18:03] LABS: SARS-CoV-2 PCR by NAA Not Detected (NotDetected)
[2021-02-15 06:27] LABS: Iron 34 ug/dL (65-175); Iron Binding Capacity, Total 333 mcg/dL (261-462)
[2021-02-15 06:28] LABS: ALT (SGPT) 17 U/L (8-55); AST (SGOT) 23 U/L (5-34); Albumin 2.9 g/dL (3.4-4.8); Alkaline Phosphatase 57 U/L (40-110); Anion Gap 9 mmol/L (10-20); BUN (Urea Nitrogen) 18 mg/dL (8.4-25.7); Bilirubin, Total 0.4 mg/dL (0.2-1.2); Calc. Creatinine Clearance 42 mL/min (70-130); Calcium 8.2 mg/dL (7.8-10.44); Carbon Dioxide 24 mmol/L (23-31); Chloride 108 mmol/L (98-107); Globulin 3.3 g/dL (2.4-3.5); Glucose 89 mg/dL (83-110); Iron 33 ug/dL (65-175); Iron Binding Capacity, Total 333 mcg/dL (261-462); Protein, Total 6.2 g/dL (5.8-8.1); Sodium 137 mmol/L (136-145)
[2021-02-15 09:45] LABS: #Eosinphils 1.1 thou/uL (0.0-0.7); #Monocytes 0.4 thou/uL (0.11-0.59); %Basophils 0.6 % (0.0-1.0); %Eosinophils 20.1 % (0.0-10.0); %Lymphocytes 17.7 % (21.0-51.0); %Monocytes 7.8 % (0.0-10.0); %Neutrophils 53.7 % (42.0-75.0); Hemoglobin 8.6 g/dL (14.0-18.0); Mean Corpuscular HGB CONC 31.4 g/dL (32.0-36.0); Mean Corpuscular Hemoglobin 25.6 pg (27.0-31.0); Mean Corpuscular Volume 81.5 fL (78.0-98.0); Mean Platelet Volume 6.3 fL (7.4-10.4); Platelet Count 598 thou/uL (130-400); RBC Distribution Width 17.8 % (11.5-14.5); Red Blood Cell (RBC) Count 3.35 mill/uL (4.70-6.10); White Blood Cell (WBC) Count 5.6 thou/uL (4.8-10.8)
[2021-02-15 10:05] LABS: Band 3 % (5-11); Eosinophils 25 % (0-10); Hypochromia SLIGHT = 6-15 cells (100X) (0-5/hpf); Lymphocytes 21 % (21-51); MDiff Complete? YES; Mean Corpuscular HGB CONC 30.6 g/dL (32.0-36.0); Mean Corpuscular Hemoglobin 24.8 pg (27.0-31.0); Mean Corpuscular Volume 80.9 fL (78.0-98.0); Mean Platelet Volume 6.4 fL (7.4-10.4); Monocytes 9 % (0-10); Neutrophil 41 % (42-75); Platelet Count 539 thou/uL (130-400); Platelet Morphology Comment Appears Increased; Polychromasia SLIGHT = 2-3 cells (100X) (0-2/hpf); RBC Distribution Width 17.6 % (11.5-14.5); Red Blood Cell (RBC) Count 3.22 mill/uL (4.70-6.10); White Blood Cell (WBC) Count 6.4 thou/uL (4.8-10.8)
[2021-02-15 15:46] VITALS: BP 121/66; TEMP 98
== END 2021-02-15 18:20 | disposition home or self-care (01) ==
LOC: ERS 10:17 → ERHOLD 12:21 → SURG B 16:01
PROVIDERS: ADMIT Internal Medicine; ATTEND Internal Medicine
DX: D53.9 Nutritional anemia, unspecified (principal); J44.9 Chronic obstructive pulmonary disease, unspecified; I10 Essential (primary) hypertension; F17.210 Nicotine dependence, cigarettes, uncomplicated; F17.220 Nicotine dependence, chewing tobacco, uncomplicated; R63.4 Abnormal weight loss; Z68.1 Body mass index [BMI] 19.9 or less, adult; Z87.11 Personal history of peptic ulcer disease; Z79.82 Long term (current) use of aspirin; Z88.0 Allergy status to penicillin; Z20.822 Contact with and (suspected) exposure to COVID-19
CPT/HCPCS: 36430; 71045; 80053 ×2; 81003; 82274; 82607; 82746; 83540; 83550; 84484; 85025 ×3; 86850; 86900; 86901; 86920; 93005; 97139 ×4; 99285; G0378 ×3; P9016; U0003; U0005; 36415; 87635

== ENCOUNTER 2021-07-09 08:40 | Emergency (ER) | payer MEDICARE, MEDICAID ==
[2021-07-09 09:26] LABS: #Eosinphils 0.8 thou/uL (0.0-0.7); #Lymphocytes 1.1 thou/uL (1.20-3.40); #Monocytes 0.8 thou/uL (0.11-0.59); #Neutrophils 5.3 thou/uL (1.40-6.50); %Basophils 0.6 % (0.0-1.0); %Eosinophils 9.5 % (0.0-10.0); %Lymphocytes 13.5 % (21.0-51.0); %Monocytes 9.7 % (0.0-10.0); %Neutrophils 66.8 % (42.0-75.0); Hemoglobin 8.2 g/dL (14.0-18.0); Mean Corpuscular HGB CONC 32.3 g/dL (32.0-36.0); Mean Corpuscular Hemoglobin 29.5 pg (27.0-31.0); Mean Corpuscular Volume 91.2 fL (78.0-98.0); Mean Platelet Volume 6.2 fL (7.4-10.4); Platelet Count 649 thou/uL (130-400); Red Blood Cell (RBC) Count 2.77 mill/uL (4.70-6.10); White Blood Cell (WBC) Count 7.9 thou/uL (4.8-10.8)
[2021-07-09 09:45] LABS: ALT (SGPT) 16 U/L (8-55); AST (SGOT) 28 U/L (5-34); Albumin 3.2 g/dL (3.4-4.8); Alkaline Phosphatase 85 U/L (40-110); Anion Gap 10 mmol/L (10-20); BUN (Urea Nitrogen) 16 mg/dL (8.4-25.7); Bilirubin, Total 0.4 mg/dL (0.2-1.2); Calc. Creatinine Clearance 0 mL/min (70-130); Calcium 8.6 mg/dL (7.8-10.44); Carbon Dioxide 24 mmol/L (23-31); Chloride 106 mmol/L (98-107); Glucose 113 mg/dL (83-110); Protein, Total 7.2 g/dL (5.8-8.1); Sodium 136 mmol/L (136-145)
[2021-07-09 10:27] LABS: Bilirubin Negative (Negative); Blood, Urine Negative (Negative); Clarity Clear (Clear); Glucose, Urine (Dipstick) Normal (Negative); Ketone, Urine Negative (Negative); Leukocyte Negative Leu/uL (Negative); Nitrite Negative (Negative); Protein, Urine (Dipstick) 10 mg/dL (Neg-Trace); Specific Gravity, Urine 1.022 (1.002-1.036); Urobilinogen Normal mg/dL (Less than 2); pH, Urine 5.5 (5.0-9.0)
[2021-07-09] MEDS ORDERED: Iopamidol-370 76% 500 ML 1 ML ONE (13:28)
[2021-07-09] MEDS ORDERED: Iopamidol 370 76% 50 ML VIAL FS ONE (13:28)
== END 2021-07-09 14:36 | disposition left against medical advice (07) ==
LOC: ERS 08:40
DX: I95.1 Orthostatic hypotension (principal); D64.9 Anemia, unspecified; I77.4 Celiac artery compression syndrome; J43.9 Emphysema, unspecified; C78.7 Secondary malignant neoplasm of liver and intrahepatic bile duct; F17.210 Nicotine dependence, cigarettes, uncomplicated
CPT/HCPCS: 71045; 74177; 80053; 81003; 82274; 83690; 84484; 85025; 93005; Q9967

== ENCOUNTER 2021-07-17 11:07 | Outpatient (CLI) | payer MEDICARE, MEDICAID | END 2021-07-17 11:08 | disposition home or self-care (01) | LOC: PET 11:07 | PROVIDERS: ATTEND Internal Medicine Hematology & Oncology | DX: C16.2 Malignant neoplasm of body of stomach (principal); J43.2 Centrilobular emphysema; K80.20 Calculus of gallbladder without cholecystitis without obstruction | CPT/HCPCS: 78815; A9552 ==

== ENCOUNTER 2021-07-18 10:59 | Outpatient (CLI) | payer MEDICARE, MEDICAID ==
[2021-07-19 11:55] LABS: SARS-CoV-2 PCR by NAA Not Detected (NotDetected)
== END 2021-07-18 11:00 | disposition home or self-care (01) ==
LOC: LABBT 10:59
PROVIDERS: ATTEND Internal Medicine Hematology & Oncology
DX: Z01.812 Encounter for preprocedural laboratory examination (principal); R16.0 Hepatomegaly, not elsewhere classified; C16.2 Malignant neoplasm of body of stomach; D50.0 Iron deficiency anemia secondary to blood loss (chronic); Z20.822 Contact with and (suspected) exposure to COVID-19
CPT/HCPCS: U0003; U0005

== ENCOUNTER → 2021-07-23 | Day surgery (SDC) | payer MEDICARE, MEDICAID ==
[2021-07-20 09:34] VITALS: BMI 19.2
[2021-07-23 08:53] LABS: Prothrombin Time 13.5 sec (12.0-14.7)
[2021-07-23 08:54] LABS: PTT 32.4 sec (22.9-36.1)
== END ==
LOC: CT 08:25
PROVIDERS: ATTEND Internal Medicine Hematology & Oncology
PROC: 0FB13ZX Excision of Right Lobe Liver, Percutaneous Approach, Diagnostic (ICD-10-PCS; principal; 2021-07-23)
DX: C7B.8 Other secondary neuroendocrine tumors (principal); C16.9 Malignant neoplasm of stomach, unspecified; D63.0 Anemia in neoplastic disease; J43.9 Emphysema, unspecified; K21.9 Gastro-esophageal reflux disease without esophagitis; F17.220 Nicotine dependence, chewing tobacco, uncomplicated; Z79.82 Long term (current) use of aspirin; Z88.0 Allergy status to penicillin
CPT/HCPCS: 36415; 47000; 77002; 85610; 85730; 88307; 88313; 88341; 88342; 88360

== ENCOUNTER 2021-08-22 15:23 | Emergency (ER) | payer MEDICARE, MEDICAID ==
[2021-08-22 16:08] LABS: #Eosinphils 0.2 thou/uL (0.0-0.7); #Lymphocytes 0.8 thou/uL (1.20-3.40); #Monocytes 0.6 thou/uL (0.11-0.59); #Neutrophils 5.7 thou/uL (1.40-6.50); %Basophils 0.4 % (0.0-1.0); %Eosinophils 2.9 % (0.0-10.0); %Lymphocytes 11.1 % (21.0-51.0); %Monocytes 7.5 % (0.0-10.0); %Neutrophils 78.2 % (42.0-75.0); Hemoglobin 10.8 g/dL (14.0-18.0); Mean Corpuscular HGB CONC 32.6 g/dL (32.0-36.0); Mean Corpuscular Hemoglobin 32.3 pg (27.0-31.0); Mean Platelet Volume 6.2 fL (7.4-10.4); Platelet Count 589 thou/uL (130-400); RBC Distribution Width 16.4 % (11.5-14.5); Red Blood Cell (RBC) Count 3.36 mill/uL (4.70-6.10); White Blood Cell (WBC) Count 7.3 thou/uL (4.8-10.8)
[2021-08-22 16:57] LABS: ALT (SGPT) 16 U/L (8-55); AST (SGOT) 25 U/L (5-34); Albumin 2.9 g/dL (3.4-4.8); Alkaline Phosphatase 86 U/L (40-110); Anion Gap 12 mmol/L (10-20); BUN (Urea Nitrogen) 21 mg/dL (8.4-25.7); Bilirubin, Total 0.2 mg/dL (0.2-1.2); Calc. Creatinine Clearance 0 mL/min (70-130); Calcium 8.7 mg/dL (7.8-10.44); Carbon Dioxide 25 mmol/L (23-31); Chloride 103 mmol/L (98-107); Globulin 3.5 g/dL (2.4-3.5); Glucose 139 mg/dL (83-110); Potassium 4.8 mmol/L (3.5-5.1); Protein, Total 6.4 g/dL (5.8-8.1); Sodium 135 mmol/L (136-145)
== END 2021-08-22 17:57 | disposition home or self-care (01) ==
LOC: ERS 15:23
DX: D64.9 Anemia, unspecified (principal); R06.00 Dyspnea, unspecified; J43.9 Emphysema, unspecified; F17.220 Nicotine dependence, chewing tobacco, uncomplicated; Z85.028 Personal history of other malignant neoplasm of stomach
CPT/HCPCS: 36415; 71045; 80053; 84484; 85025; 86850; 86900; 86901; 93005

== ENCOUNTER 2021-09-14 16:21 | Inpatient (IN) | payer MEDICARE, MEDICAID ==
[2021-09-14 17:11] LABS: ALT (SGPT) 22 U/L (8-55); AST (SGOT) 30 U/L (5-34); Albumin 3.2 g/dL (3.4-4.8); Alkaline Phosphatase 93 U/L (40-110); Anion Gap 10 mmol/L (10-20); BUN (Urea Nitrogen) 19 mg/dL (8.4-25.7); Bilirubin, Total 0.4 mg/dL (0.2-1.2); Calc. Creatinine Clearance 0 mL/min (70-130); Calcium 8.5 mg/dL (7.8-10.44); Carbon Dioxide 26 mmol/L (23-31); Chloride 99 mmol/L (98-107); Globulin 3.7 g/dL (2.4-3.5); Glucose 116 mg/dL (83-110); Potassium 4.3 mmol/L (3.5-5.1); Protein, Total 6.9 g/dL (5.8-8.1); Sodium 131 mmol/L (136-145)
[2021-09-14 17:33] LABS: Hemoglobin 9.3 g/dL (14.0-18.0); Mean Corpuscular HGB CONC 33.3 g/dL (32.0-36.0); Mean Corpuscular Volume 98.9 fL (78.0-98.0); Mean Platelet Volume 6.9 fL (7.4-10.4); Platelet Count 141 thou/uL (130-400); RBC Distribution Width 13.6 % (11.5-14.5); Red Blood Cell (RBC) Count 2.81 mill/uL (4.70-6.10); White Blood Cell (WBC) Count 0.5 thou/uL (4.8-10.8)
[2021-09-14] MEDS ORDERED: Cefepime 2 GM VIAL ONE (18:06)
[2021-09-14] MEDS ORDERED: Vancomycin 1 GM/200 ML BAG ONE (18:49)
[2021-09-14] MEDS ORDERED: Acetaminophen 325 MG TAB PO PRN (20:59)
[2021-09-14] MEDS ORDERED: Bisacodyl 5 MG TAB PO PRN (20:59)
[2021-09-14] MEDS ORDERED: HYDROcodone/Acetaminophen 5/325 mg Tablet PO PRN (20:59)
[2021-09-14] MEDS ORDERED: HYDROcodone/Acetaminophen 7.5/325 mg Tablet PO PRN (20:59)
[2021-09-14] MEDS ORDERED: Senokot S 8.6-50 MG TAB PO PRN (20:59)
[2021-09-14] MEDS ORDERED: Ondansetron PF 4 MG/2 ML Vial IVP PRN (20:59)
[2021-09-14] MEDS ORDERED: Melatonin 3 MG TAB PO PRN (21:06)
[2021-09-14 21:40] VITALS: BMI 16.4
[2021-09-15] MEDS ORDERED: hydrALAZINE 20 MG/ML VIAL SLOW IVP PRN (03:04)
[2021-09-15] MEDS ORDERED: CEFEPIME HCL IN DEXTROSE 5 % 1 GM/50 ML BAG IVPB SCH (06:15)
[2021-09-15] MEDS ORDERED: Sodium Chloride 0.9% 500 ML IV SCH (06:30)
[2021-09-15] MEDS: Mometasone 200 MCG/Formoterol 5 MCG 120 PUFF INHALER INH SCH ×2 (07:31→18:40)
[2021-09-15] MEDS: Cefepime 2 GM in Sodium Chloride 0.9% 100 ML IVPB SCH ×2 (08:17→18:30)
[2021-09-15 14:09] LABS: Hemoglobin 8.1 g/dL (14.0-18.0); Mean Corpuscular HGB CONC 34.8 g/dL (32.0-36.0); Mean Corpuscular Hemoglobin 34.2 pg (27.0-31.0); Mean Corpuscular Volume 98.3 fL (78.0-98.0); RBC Distribution Width 13.6 % (11.5-14.5); Red Blood Cell (RBC) Count 2.37 mill/uL (4.70-6.10); White Blood Cell (WBC) Count 0.6 thou/uL (4.8-10.8)
[2021-09-15 14:15] LABS: ALT (SGPT) 22 U/L (8-55); AST (SGOT) 28 U/L (5-34); Albumin 2.7 g/dL (3.4-4.8); Alkaline Phosphatase 70 U/L (40-110); Anion Gap 9 mmol/L (10-20); BUN (Urea Nitrogen) 15 mg/dL (8.4-25.7); Bilirubin, Total 0.4 mg/dL (0.2-1.2); Calc. Creatinine Clearance 40 mL/min (70-130); Calcium 8.3 mg/dL (7.8-10.44); Carbon Dioxide 25 mmol/L (23-31); Chloride 104 mmol/L (98-107); Globulin 3.3 g/dL (2.4-3.5); Glucose 111 mg/dL (83-110); Potassium 4.9 mmol/L (3.5-5.1); Sodium 133 mmol/L (136-145)
[2021-09-15 14:27] LABS: Eosinophils 36 % (0-10); Lymphocytes 36 % (21-51); MDiff Complete? YES; Macrocytosis SLIGHT = 6-15 cells (100X) (0-5/hpf); Mean Platelet Volume 7.3 fL (7.4-10.4); Monocytes 4 % (0-10); Neutrophil 4 % (42-75); Platelet Count 74 thou/uL (130-400); Platelet Morphology Comment Appears Decreased; Polychromasia SLIGHT = 2-3 cells (100X) (0-2/hpf); Reactive Lymphocytes 20 % (0-10)
[2021-09-15] MEDS: Acetaminophen 325 MG TAB PO PRN (15:59)
[2021-09-15] MEDS ORDERED: Magnesium Citrate 300 ML BOT PO SCH (16:00)
[2021-09-15] MEDS ORDERED: Mineral Oil ENEMA PR SCH (16:00)
[2021-09-15 16:24] LABS: SARS-CoV-2 PCR by NAA Not Detected (NotDetected)
[2021-09-15] MEDS ORDERED: Non-Formulary Item 1 EACH (Budesonide-Formoterol [Symbicort 160-4.5] 160 MG/4.5 MG Aer) INH SCH (21:00)
[2021-09-16] MEDS: Acetaminophen 325 MG TAB PO PRN (00:45)
[2021-09-16] MEDS: Cefepime 2 GM in Sodium Chloride 0.9% 100 ML IVPB SCH (05:29)
[2021-09-16] MEDS: Mometasone 200 MCG/Formoterol 5 MCG 120 PUFF INHALER INH SCH (06:08)
[2021-09-16 07:04] LABS: Hemoglobin 7.5 g/dL (14.0-18.0); Mean Corpuscular HGB CONC 35.1 g/dL (32.0-36.0); Mean Corpuscular Hemoglobin 34.2 pg (27.0-31.0); Mean Corpuscular Volume 97.6 fL (78.0-98.0); Mean Platelet Volume 7.5 fL (7.4-10.4); Platelet Count 44 thou/uL (130-400); RBC Distribution Width 13.2 % (11.5-14.5); White Blood Cell (WBC) Count 0.9 thou/uL (4.8-10.8)
[2021-09-16 08:36] LABS: Band 2 % (5-11); Eosinophils 10 % (0-10); Lymphocytes 65 % (21-51); MDiff Complete? YES; Monocytes 5 % (0-10); Neutrophil 10 % (42-75); Platelet Morphology Comment Appears Decreased; Reactive Lymphocytes 4 % (0-10)
[2021-09-16] MEDS ORDERED: Mineral Oil ENEMA PR SCH (10:15)
[2021-09-16 14:29] VITALS: BP 100/61; TEMP 98.7
[2021-09-17] MEDS ORDERED: FLU VACC QS2021-22(65YR UP)/PF 240 MCG/0.7 ML SYRINGE IM ONE (09:00)
== END 2021-09-16 14:46 | disposition home or self-care (01) | DRG 809 ==
LOC: ERS 16:21 → T4-B 18:36 → UNDODISOB 22:16 → OBSVTOIN 09-15 20:19
PROVIDERS: ADMIT Hospitalist; ATTEND Family Medicine
DX: D70.9 Neutropenia, unspecified (principal); C16.9 Malignant neoplasm of stomach, unspecified; R64 Cachexia; Z68.1 Body mass index [BMI] 19.9 or less, adult; Z20.822 Contact with and (suspected) exposure to COVID-19; K59.01 Slow transit constipation; R50.81 Fever presenting with conditions classified elsewhere; T45.1X5A Adverse effect of antineoplastic and immunosuppressive drugs, initial encounter; D61.810 Antineoplastic chemotherapy induced pancytopenia; I10 Essential (primary) hypertension; Z98.890 Other specified postprocedural states; Z87.891 Personal history of nicotine dependence
CPT/HCPCS: 36415; 70450; 71045; 80053; 83605; 84484; 85025; 86850; 86900; 86901; 87040; 93005; 96376; G0378; J0692; J3370; J3490; J7030; U0003; U0005

== ENCOUNTER 2021-09-21 13:07 | Observation (INO) | payer MEDICARE, MEDICAID ==
[2021-09-21 14:39] LABS: Analyzer IN Cardio ER
[2021-09-21 14:40] LABS: Actual Bicarbonate (HCO3v) 26 mEq/L (22-28); Base Excess 1.5 mEq/L (-2.0 to +3.0); Hemoglobin (Hb) 6.5 g/dL (12.6-17.4); Potassium (VBG) 4.26 mmol/L (3.70-5.30); Sodium 135.6 mmol/L (133-146); pH (venous) 7.44 (7.32-7.43)
[2021-09-21 14:41] LABS: Calcium, Ionized (venous) 1.09 mmol/L (1.16-1.32); Chloride (VBG) 106 mmol/L (98-106)
[2021-09-21 14:44] LABS: Hemoglobin 6.5 g/dL (14.0-18.0); Mean Corpuscular HGB CONC 34.4 g/dL (32.0-36.0); Mean Corpuscular Hemoglobin 33.8 pg (27.0-31.0); Mean Corpuscular Volume 98.4 fL (78.0-98.0); Mean Platelet Volume 7.4 fL (7.4-10.4); Platelet Count 452 thou/uL (130-400); RBC Distribution Width 13.5 % (11.5-14.5); Red Blood Cell (RBC) Count 1.93 mill/uL (4.70-6.10); White Blood Cell (WBC) Count 8.6 thou/uL (4.8-10.8)
[2021-09-21 14:52] LABS: INR-International Normal Ratio 1.2
[2021-09-21 14:53] LABS: PTT 33.8 sec (22.9-36.1)
[2021-09-21 14:53] LABS: ALT (SGPT) 24 U/L (8-55); AST (SGOT) 31 U/L (5-34); Albumin 2.6 g/dL (3.4-4.8); Alkaline Phosphatase 88 U/L (40-110); Anion Gap 10 mmol/L (10-20); BUN (Urea Nitrogen) 24 mg/dL (8.4-25.7); Bilirubin, Total 0.2 mg/dL (0.2-1.2); Calc. Creatinine Clearance 0 mL/min (70-130); Calcium 8.1 mg/dL (7.8-10.44); Carbon Dioxide 27 mmol/L (23-31); Chloride 106 mmol/L (98-107); Globulin 2.8 g/dL (2.4-3.5); Glucose 120 mg/dL (83-110); Lipase 10 U/L (8-78); Magnesium 1.8 mg/dL (1.6-2.6); Potassium 4.6 mmol/L (3.5-5.1); Protein, Total 5.4 g/dL (5.8-8.1); Sodium 138 mmol/L (136-145)
[2021-09-21 15:19] LABS: Band 46 % (5-11); Differential Comment Blast-Like Cell(s); Lymphocytes 9 % (21-51); MDiff Complete? YES; Monocytes 5 % (0-10); Myelocyte 4 % (0-0); Neutrophil 32 % (42-75); Platelet Morphology Comment Appears Increased; Promyelocytes 1 % (0-0); RBC Morphology Normal; Reflex for Review?? YES
[2021-09-21] MEDS ORDERED: HYDROcodone/Acetaminophen 5/325 mg Tablet PO PRN (17:36)
[2021-09-21] MEDS ORDERED: Guaifenesin DM 100-10/5 ML UDCUP PO PRN (17:36)
[2021-09-21] MEDS ORDERED: Acetaminophen 325 MG TAB PO PRN (17:36)
[2021-09-21] MEDS ORDERED: Senokot S 8.6-50 MG TAB PO PRN (17:36)
[2021-09-21 18:01] LABS: Bilirubin Negative (Negative); Blood, Urine Negative (Negative); Clarity Clear (Clear); Glucose, Urine (Dipstick) Normal (Negative); Ketone, Urine Negative (Negative); Leukocyte Negative Leu/uL (Negative); Nitrite Negative (Negative); Protein, Urine (Dipstick) 10 mg/dL (Neg-Trace); Specific Gravity, Urine 1.027 (1.002-1.036); Urobilinogen Normal mg/dL (Less than 2); pH, Urine 5.5 (5.0-9.0)
[2021-09-21 18:06] LABS: Bacteria/HPF None Seen HPF (None Seen); RBC/HPF 0-3 HPF (0-3); Squamous Epithelial None Seen HPF (0-3); WBC/HPF 0-3 HPF (0-3)
[2021-09-21 19:08] LABS: SARS-CoV-2 NAA Rapid Test DETECTED (NotDetected)
[2021-09-21 21:58] VITALS: BMI 16.9
[2021-09-21 22:51] LABS: Hemoglobin 7.7 g/dL (14.0-18.0)
[2021-09-22] MEDS: Famotidine 20 MG TAB PO SCH ×2 (01:05→09:41)
[2021-09-22 06:23] LABS: Hemoglobin 7.9 g/dL (14.0-18.0); Mean Corpuscular Hemoglobin 34.8 pg (27.0-31.0); Mean Corpuscular Volume 96.6 fL (78.0-98.0); Mean Platelet Volume 7.1 fL (7.4-10.4); Platelet Count 413 thou/uL (130-400); RBC Distribution Width 13.5 % (11.5-14.5); Red Blood Cell (RBC) Count 2.27 mill/uL (4.70-6.10); White Blood Cell (WBC) Count 6.6 thou/uL (4.8-10.8)
[2021-09-22 06:36] LABS: Anion Gap 9 mmol/L (10-20); BUN (Urea Nitrogen) 32 mg/dL (8.4-25.7); Calc. Creatinine Clearance 50 mL/min (70-130); Calcium 8.1 mg/dL (7.8-10.44); Carbon Dioxide 27 mmol/L (23-31); Chloride 106 mmol/L (98-107); Glucose 89 mg/dL (83-110); Sodium 138 mmol/L (136-145)
[2021-09-22 07:01] LABS: Band 21 % (5-11); Eosinophils 1 % (0-10); Lymphocytes 15 % (21-51); MDiff Complete? YES; Monocytes 16 % (0-10); Myelocyte 2 % (0-0); Neutrophil 45 % (42-75)
[2021-09-22] MEDS ORDERED: FLU VACC QS2021-22(65YR UP)/PF 240 MCG/0.7 ML SYRINGE IM ONE (09:00)
[2021-09-22 12:03] VITALS: TEMP 98.3
[2021-09-22 12:15] VITALS: BP 123/70
[2021-09-22 16:46] LABS: Hemoglobin 8.8 g/dL (14.0-18.0)
[2021-09-24 10:00] LABS: Critical Call w/ Read Back 886277
== END 2021-09-22 17:43 | disposition home or self-care (01) ==
LOC: ERS 13:07 → T4-B 19:21
PROVIDERS: ADMIT Hospitalist; ATTEND Hospitalist
DX: D62 Acute posthemorrhagic anemia (principal); U07.1 COVID-19; J12.82 Pneumonia due to coronavirus disease 2019; C16.9 Malignant neoplasm of stomach, unspecified; C78.7 Secondary malignant neoplasm of liver and intrahepatic bile duct; D63.8 Anemia in other chronic diseases classified elsewhere; J44.9 Chronic obstructive pulmonary disease, unspecified; F17.210 Nicotine dependence, cigarettes, uncomplicated; E46 Unspecified protein-calorie malnutrition; Z68.1 Body mass index [BMI] 19.9 or less, adult; Z79.51 Long term (current) use of inhaled steroids; Z88.0 Allergy status to penicillin; Z98.890 Other specified postprocedural states
CPT/HCPCS: 36430 ×2; 71045; 80048; 80053; 81001; 82728; 82805; 83550; 83605; 83690; 83735; 83880; 84484; 85018 ×2; 85025 ×2; 85610; 85730; 86850; 86900; 86901; 86920; 87086; 93005; 97116; 97139 ×2; P9016 ×2; U0002; 36415; 85060; G0378

== ENCOUNTER 2021-10-26 08:32 | Inpatient (IN) | payer MEDICARE, MEDICAID ==
[2021-10-26 09:42] LABS: ALT (SGPT) 14 U/L (8-55); AST (SGOT) 15 U/L (5-34); Albumin 2.7 g/dL (3.4-4.8); Alkaline Phosphatase 75 U/L (40-110); Anion Gap 11 mmol/L (10-20); BUN (Urea Nitrogen) 22 mg/dL (8.4-25.7); Bilirubin, Total 0.7 mg/dL (0.2-1.2); Calc. Creatinine Clearance 0 mL/min (70-130); Calcium 7.7 mg/dL (7.8-10.44); Carbon Dioxide 24 mmol/L (23-31); Chloride 100 mmol/L (98-107); Globulin 3.2 g/dL (2.4-3.5); Glucose 114 mg/dL (83-110); Potassium 4.5 mmol/L (3.5-5.1); Protein, Total 5.9 g/dL (5.8-8.1); Sodium 130 mmol/L (136-145)
[2021-10-26 10:15] LABS: Mean Corpuscular Volume 96.3 fL (78.0-98.0); Red Blood Cell (RBC) Count 2.32 mill/uL (4.70-6.10)
[2021-10-26 10:20] LABS: Mean Corpuscular HGB CONC 35.5 g/dL (32.0-36.0); Mean Corpuscular Hemoglobin 34.2 pg (27.0-31.0); Mean Platelet Volume 7.1 fL (7.4-10.4); Platelet Count 264 thou/uL (130-400); RBC Distribution Width 13.9 % (11.5-14.5); White Blood Cell (WBC) Count 1.1 thou/uL (4.8-10.8)
[2021-10-26 10:21] LABS: Band 6 % (5-11); Lymphocytes 38 % (21-51); MDiff Complete? YES; Monocytes 47 % (0-10); Neutrophil 9 % (42-75); Platelet Morphology Comment Appears Adequate; Reflex for Review?? YES; Vacuoles MODERATE
[2021-10-26 10:33] LABS: SARS-CoV-2 NAA Rapid Test Not Detected (NotDetected)
[2021-10-26] MEDS ORDERED: Sodium Chloride 0.9% 100 ML ONE (10:35)
[2021-10-26] MEDS ORDERED: Vancomycin 1 GM/200 ML BAG ONE (10:36)
[2021-10-26] MEDS ORDERED: Cefepime 2 GM VIAL ONE (10:36)
[2021-10-26] MEDS ORDERED: Acetaminophen 325 MG TAB PO PRN (11:45)
[2021-10-26 12:03] LABS: Bacteria/HPF None Seen HPF (None Seen); Bilirubin Negative (Negative); Blood, Urine Negative (Negative); Clarity Clear (Clear); Glucose, Urine (Dipstick) Normal (Negative); Ketone, Urine Negative (Negative); Leukocyte Negative Leu/uL (Negative); Nitrite Negative (Negative); Protein, Urine (Dipstick) Negative (Neg-Trace); RBC/HPF None Seen HPF (0-3); Specific Gravity, Urine 1.012 (1.002-1.036); Squamous Epithelial None Seen HPF (0-3); Urobilinogen Normal mg/dL (Less than 2); WBC/HPF 0-3 HPF (0-3)
[2021-10-26 12:19] LABS: Lactic Acid 1.6 mmol/L (0.5-2.2)
[2021-10-26 13:05] VITALS: BMI 17.4
[2021-10-26] MEDS: Sodium Chloride 0.9% 1,000 ML IV SCH ×2 (13:16→23:32)
[2021-10-26] MEDS ORDERED: FLU VACC QS2021-22(65YR UP)/PF 240 MCG/0.7 ML SYRINGE IM ONE (15:15)
[2021-10-26] MEDS: Calcium Carbonate 600 MG + Vit D TAB PO SCH (16:50)
[2021-10-26] MEDS: Mometasone 200 MCG/Formoterol 5 MCG 120 PUFF INHALER INH SCH (19:30)
[2021-10-26] MEDS: Folic Acid 1 MG TAB PO SCH (20:29)
[2021-10-26] MEDS: Senokot S 8.6-50 MG TAB PO SCH (20:29)
[2021-10-26] MEDS ORDERED: Sodium Chloride 0.9% 500 ML IV SCH (20:30)
[2021-10-26] MEDS: guaiFENesin/DM ER PO SCH (21:41)
[2021-10-27] MEDS ORDERED: Midodrine HCl 5 MG TAB PO SCH (00:16)
[2021-10-27] MEDS ORDERED: Sodium Chloride 0.9% 500 ML IV SCH (04:30)
[2021-10-27 05:21] LABS: Anion Gap 8 mmol/L (10-20); BUN (Urea Nitrogen) 19 mg/dL (8.4-25.7); Calc. Creatinine Clearance 40 mL/min (70-130); Calcium 7.5 mg/dL (7.8-10.44); Carbon Dioxide 23 mmol/L (23-31); Chloride 109 mmol/L (98-107); Glucose 84 mg/dL (83-110); Potassium 4.5 mmol/L (3.5-5.1); Sodium 135 mmol/L (136-145)
[2021-10-27 05:29] LABS: Band 16 % (5-11); Eosinophils 22 % (0-10); Hemoglobin 6.5 g/dL (14.0-18.0); Lymphocytes 26 % (21-51); MDiff Complete? YES; Macrocytosis MODERATE=16-30 cells (100X) (0-5/hpf); Mean Corpuscular HGB CONC 34.4 g/dL (32.0-36.0); Mean Corpuscular Hemoglobin 33.8 pg (27.0-31.0); Mean Corpuscular Volume 98.4 fL (78.0-98.0); Mean Platelet Volume 6.6 fL (7.4-10.4); Monocytes 26 % (0-10); Neutrophil 10 % (42-75); Platelet Count 280 thou/uL (130-400); Platelet Morphology Comment Appears Adequate; Polychromasia SLIGHT = 2-3 cells (100X) (0-2/hpf); RBC Distribution Width 13.8 % (11.5-14.5); Red Blood Cell (RBC) Count 1.92 mill/uL (4.70-6.10); White Blood Cell (WBC) Count 1.7 thou/uL (4.8-10.8)
[2021-10-27] MEDS: Mometasone 200 MCG/Formoterol 5 MCG 120 PUFF INHALER INH SCH ×2 (07:06→19:48)
[2021-10-27] MEDS: Senokot S 8.6-50 MG TAB PO SCH ×2 (08:11→20:39)
[2021-10-27] MEDS: Folic Acid 1 MG TAB PO SCH ×2 (08:12→20:40)
[2021-10-27] MEDS: Sodium Chloride 0.9% 1,000 ML IV SCH ×2 (08:12→17:35)
[2021-10-27] MEDS: Famotidine 20 MG TAB PO SCH (08:12)
[2021-10-27] MEDS: Calcium Carbonate 600 MG + Vit D TAB PO SCH ×2 (08:13→17:18)
[2021-10-27] MEDS: guaiFENesin/DM ER PO SCH ×4 (09:06→20:40)
[2021-10-28] MEDS: Sodium Chloride 0.9% 1,000 ML IV SCH (00:37)
[2021-10-28 06:03] LABS: Band 9 % (5-11); Eosinophils 3 % (0-10); Hemoglobin 10.2 g/dL (14.0-18.0); Hypochromia SLIGHT = 6-15 cells (100X) (0-5/hpf); Lymphocytes 19 % (21-51); MDiff Complete? YES; Mean Corpuscular HGB CONC 34.9 g/dL (32.0-36.0); Mean Corpuscular Hemoglobin 33.4 pg (27.0-31.0); Mean Corpuscular Volume 95.6 fL (78.0-98.0); Mean Platelet Volume 7.2 fL (7.4-10.4); Monocytes 14 % (0-10); Neutrophil 52 % (42-75); Nucleated RBC 3 % (0); Platelet Count 411 thou/uL (130-400); Platelet Morphology Comment Appears Increased; Reactive Lymphocytes 3 % (0-10); Red Blood Cell (RBC) Count 3.06 mill/uL (4.70-6.10); White Blood Cell (WBC) Count 2.5 thou/uL (4.8-10.8)
[2021-10-28 06:06] LABS: Anion Gap 7 mmol/L (10-20); BUN (Urea Nitrogen) 15 mg/dL (8.4-25.7); Calc. Creatinine Clearance 45 mL/min (70-130); Calcium 8.1 mg/dL (7.8-10.44); Carbon Dioxide 25 mmol/L (23-31); Chloride 105 mmol/L (98-107); Glucose 81 mg/dL (83-110); Potassium 4.1 mmol/L (3.5-5.1); Sodium 133 mmol/L (136-145)
[2021-10-28] MEDS: Mometasone 200 MCG/Formoterol 5 MCG 120 PUFF INHALER INH SCH (07:59)
[2021-10-28] MEDS: Calcium Carbonate 600 MG + Vit D TAB PO SCH (08:16)
[2021-10-28 08:47] VITALS: BP 113/58; TEMP 97.8
[2021-10-28] MEDS: Famotidine 20 MG TAB PO SCH (08:57)
[2021-10-28] MEDS: Senokot S 8.6-50 MG TAB PO SCH (08:58)
[2021-10-28] MEDS: Folic Acid 1 MG TAB PO SCH (08:58)
[2021-10-28] MEDS: guaiFENesin/DM ER PO SCH (09:00)
== END 2021-10-28 11:25 | disposition home or self-care (01) | DRG 809 ==
LOC: ERS 08:32 → MSONC 11:33
PROVIDERS: ADMIT Internal Medicine; ATTEND Family Medicine
PROC: 30233N1 Transfusion of Nonautologous Red Blood Cells into Peripheral Vein, Percutaneous Approach (ICD-10-PCS; principal; 2021-10-27)
DX: D61.810 Antineoplastic chemotherapy induced pancytopenia (principal); C16.9 Malignant neoplasm of stomach, unspecified; R64 Cachexia; E87.1 Hypo-osmolality and hyponatremia; Z68.1 Body mass index [BMI] 19.9 or less, adult; D62 Acute posthemorrhagic anemia; Z20.822 Contact with and (suspected) exposure to COVID-19; J43.9 Emphysema, unspecified; F17.220 Nicotine dependence, chewing tobacco, uncomplicated; F17.210 Nicotine dependence, cigarettes, uncomplicated; E83.51 Hypocalcemia; R50.81 Fever presenting with conditions classified elsewhere; D64.81 Anemia due to antineoplastic chemotherapy; T45.1X5A Adverse effect of antineoplastic and immunosuppressive drugs, initial encounter; Z88.0 Allergy status to penicillin; Z79.51 Long term (current) use of inhaled steroids
CPT/HCPCS: 0240U; 36415; 36430; 71045; 80048; 80053; 83605; 84484; 85025; 85060; 86850; 86900; 86901; 87040; 87086; 90471; 90662; 93005; G0008; J0692; J3370; J3490; J7030; J7050; P9016

== ENCOUNTER 2021-11-15 11:24 | Outpatient (CLI) | payer MEDICARE, MEDICAID | END 2021-11-15 11:25 | disposition home or self-care (01) | LOC: PET 11:24 | PROVIDERS: ATTEND Internal Medicine Hematology & Oncology | DX: C16.2 Malignant neoplasm of body of stomach (principal); C78.7 Secondary malignant neoplasm of liver and intrahepatic bile duct | CPT/HCPCS: 78815; A9552 ==

== ENCOUNTER 2021-12-13 08:53 | Day surgery (SDC) | payer MEDICARE, MEDICAID ==
[2021-12-13] MEDS ORDERED: diphenhydrAMINE 25 MG CAP ONE (09:12)
[2021-12-13] MEDS ORDERED: Acetaminophen 500 MG TAB ONE (09:12)
[2021-12-13 12:09] VITALS: BP 122/58; TEMP 98.5
== END 2021-12-13 12:09 | disposition home or self-care (01) ==
LOC: ONC/OP 08:53
PROVIDERS: ATTEND Internal Medicine Hematology & Oncology
PROC: 30233N1 Transfusion of Nonautologous Red Blood Cells into Peripheral Vein, Percutaneous Approach (ICD-10-PCS; principal; 2021-12-13)
DX: D64.9 Anemia, unspecified (principal); D69.6 Thrombocytopenia, unspecified; Z88.0 Allergy status to penicillin
CPT/HCPCS: 36430; 86850; 86900; 86901; J1642; P9016

== ENCOUNTER 2022-01-18 09:55 | Outpatient (CLI) | payer MEDICARE, MEDICAID | END 2022-01-18 09:56 | disposition home or self-care (01) | LOC: PET 09:55 | PROVIDERS: ATTEND Internal Medicine Hematology & Oncology | DX: C16.2 Malignant neoplasm of body of stomach (principal) | CPT/HCPCS: 78815; A9552 ==